=== PATIENT | female | born 1935 | race Caucasian/White ===

== ENCOUNTER 2022-10-22 16:08 | Inpatient (IN) | payer MEDICARE, SELFPAY ==
--- NOTE | ~2022-10-22 | XR_ITS ---
EXAMINATION: XR CHEST CLINICAL INFORMATION: Immediately bibasilar crackles COMPARISON: None available. TECHNIQUE: Frontal view of the chest was obtained. FINDINGS: The lungs are well-expanded and clear of acute pneumonic process. The heart size and pulmonary vascularity is normal. There is a moderate to large hiatal hernia. No gross bony abnormality seen. XR/XR chest 1V IMPRESSION: Unremarkable chest exam
[2022-10-22 16:58] VITALS: BP 165/79; PULSE 65; RESP 18; TEMP 36.6; O2SAT 94
--- NOTE | 2022-10-22 20:09 | PC.ADMIT ---
Sandra Serra was admitted to S1 from [facility] on 10/22/22 at 16:31 on a 12B for aggression. Per crisis, Sandra had increased aggression towards caregivers at home. She currently resides in an apartment by herself with 24 hour care. She is alert and oriented to self only and states she is 34 years old. She is a poor historian and was unable to participate in admission interview. When asked where she was she stated [facility]? . She stated I need to go home you can just let me out of here . She was placed on 1:1 for safety.
[2022-10-22 20:13] VITALS: BMI 21.5
[2022-10-22 20:46] VITALS: BP 188/84; PULSE 73
[2022-10-22 21:10] VITALS: BP 186/85; PULSE 71
[2022-10-22 21:40] VITALS: BP 188/82; PULSE 67; RESP 18; TEMP 35.9
[2022-10-22 22:15] VITALS: BP 181/83; PULSE 69
--- NOTE | 2022-10-22 22:16 | PC.NURSE ---
At 20:10 Patient had BP of 196/88 w/ hr of 86. Dr. Bolaños, metal bonding worker, notifed. Pt reported dull headche, no vision chnages. Administered HS med of 50 mg Metoprolol and 5mg amlodipine. Pt reassessed at 20:46 188/84 w/ HR of 73. Dr. Bolaños notified and ordered 2.5 amlodipine. BP at 2110 186/85 w/ HR 71. Pt rechecked at 2215 181/83 w/ HR of 69. At this time pt was asymptomatic, headache resolved. Miky notified and no new orders give.
--- NOTE | 2022-10-22 22:51 | PC.NURSE ---
At 20:48 Pt had bp of 188/82 w/ HR of 67. Refused all meds. Asymptomatic. Disoriented. Dr. Bolaños notified.
[2022-10-23 07:30] VITALS: BP 150/68; PULSE 76; RESP 16; TEMP 36.1; O2SAT 92
[2022-10-23 08:21] LABS: MANUAL DIFF FLAG NO
[2022-10-23 08:24] LABS: Basophils Percent Auto 0.5 % (0-2); Eosinophils Absolute Auto 0.1 X10*3/uL (0.0-0.4); Eosinophils Percent Auto 2.1 % (0-4); Hematocrit 36.9 % (37.0-47.0); Hemoglobin 12.1 g/dl (12.0-16.0); Imm Gran Abs Auto 0.03 X10*3/uL (0.00-0.03); Imm Gran Pct Auto 0.5 % (0.0-0.4); Lymphocytes Absolute Auto 2.2 X10*3/uL (1.2-4.9); Lymphocytes Percent Auto 34.2 % (20-40); Mean Corpuscular HGB Conc 32.8 g/dl (31.0-35.0); Mean Corpuscular Hemoglobin 32.6 pg (27.0-33.0); Mean Corpuscular Volume 99.5 fL (80.0-98.0); Monocytes Absolute Auto 0.6 X10*3/uL (0.1-1.2); Monocytes Percent Auto 9.7 % (2-11); Neutrophils Absolute Auto 3.4 x10*3/uL (2.0-8.3); Platelet Count 162 X10*3/uL (160-400); Red Blood Count 3.71 X10*6/uL (4.20-5.50); Red Cell Distribution Width 13.6 % (11.0-16.0); White Blood Count 6.3 X10*3/uL (4.8-10.8)
[2022-10-23 08:39] LABS: Valproate < 12.5 mcg/mL (50.0-100.0)
[2022-10-23 08:46] LABS: Alanine Aminotransferase 18 U/L (0-31); Albumin Level 3.2 g/dL (3.5-5.0); Alkaline Phosphatase 70 U/L (39-117); Anion Gap 15 (12-20); Aspartate Amino Transferase 32 U/L (5-31); Bilirubin Total 1.1 mg/dL (0.0-1.0); Blood Urea Nitrogen 22 mg/dL (9-16); Calcium 8.6 mg/dL (8.4-10.2); Carbon Dioxide 22 mmol/L (22-29); Chloride 110 mmol/L (96-108); Cholesterol 169 mg/dL; Creatinine Clr Calc Pharmacy 30.6; Estimated Glomerular Filt Rate 49; Glucose Fasting 60 mg/dL (60-99); HDL Cholesterol 54 mg/dL; LDL Cholesterol Calculated 91 mg/dl; Potassium 4.2 mmol/L (3.3-5.1); Sodium 143 mmol/L (135-145); Total Protein 5.3 g/dL (6.5-8.0); Triglycerides 123 mg/dL
[2022-10-23 09:04] LABS: Free T4 (Free Thyroxine) 1.21 ng/dL (0.71-1.85); Thyroid Stimulating Hormone 0.77 uIU/mL (0.32-4.0)
[2022-10-23] MEDS: OLANZapine 5 MG TABLET PO (09:34)
[2022-10-23] MEDS: Aspirin 81 MG TAB.CHEW PO (09:34)
[2022-10-23] MEDS: Brimonidine Tartrate 0.2% Oph 5 ML BOTTLE 0.2 DROP EYE-BOTH (09:35)
[2022-10-23] MEDS: timoloL maleate 0.5 % Oph Sol 5 ML DRBTL 1 DROP EYE-BOTH (09:35)
[2022-10-23] MEDS: Venlafaxine HCl ER 150 MG CAP.ER.24H PO (09:35)
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
--- NOTE | 2022-10-23 11:56 | HO.PM.IMCN ---
History of Present Illness Data of Consult Service Date: 10/23/22 Requesting physician: Gato Rose Primary Care Provider: Unknown Physician HPI Reason for consult: medical H&P 87 year old female with history vascular dementia, hld, htn admitted to psychiatry with consult placed to hospitalist service for medical H&P. The patient is not a good historian and is perseverating on social security checks and banking and is quite anxious about this. She does deny any complaints other than constipation. However, she has a 1:1 sitter who reports when ambulating from the bathroom, she was observed to be short of breath and fatigued which resolved when sitting in her bed. When asked she says she may be short of breath. Denies lightheadedness, orthopnea, palpitations, or chest pain. Review of Systems Review of Systems: Yes Unobtainable due to mental status [facility] Medical History Anxiety HLD (hyperlipidemia) Hypertension Vascular dementia Social History Household Members: None Household Members Other:: patient has 24 hour care Housing: Apartment Do you presently have visiting nurse or other home services: Yes (patient has 24 hour care at home) Unable to assess alcohol history related to: Unable to respond Patient Tobacco Use Status: Refuse Tobacco use screen Use of substances other than those prescribed or required for medical reasons: Unable to respond Currently Displaying Signs/Symptoms of Drug Intoxication Withdrawal: No Any prior treatment program specific to substance use: No Advance Directives: No Advance Directives Information Provided: Yes Do you have thoughts of harming others: None Do you have a plan to hurt others: No Plan Recently lost weight without trying: Unsure Nutrition Risks: No Nutritional Risk Patient : No : No Poor oral hygiene: No Meds Allergies Allergy/AdvReac Type Severity Reaction Status Date / Time Unable to Assess Allergy Unverified 10/22/22 17:14 Active Medications: Current Medications Acetaminophen (Acetaminophen 325 Mg Tablet) 650 mg PO Q6H PRN PRN Reason: Headache/Pain Mild Scale (1-3) Al Hydroxide/Mg Hydroxide (Magnesium Hydrox/Alum Hydrox 30 Ml Oral.Susp) 30 ml PO Q6H PRN PRN Reason: Heartburn/Nausea Aspirin (Aspirin 81 Mg Tab.Chew) 81 mg PO DAILY [facility] Last Admin: 10/23/22 09:34 Dose: 81 mg Atorvastatin Calcium (Atorvastatin Calcium 40 Mg Tablet) 40 mg PO BEDTIME [facility] Last Admin: 10/22/22 21:13 Dose: Not Given Brimonidine Tartrate (Brimonidine Tartrate 0.2% Oph 5 Ml Bottle) 0.2 drop EYE-BOTH TID [facility] Last Admin: 10/23/22 09:35 Dose: 0.2 drop Latanoprost (Latanoprost 0.005 % Ophth Ameena 2.5 Ml Drops) 1 drop EYE-BOTH BEDTIME [facility] Last Admin: 10/22/22 21:13 Dose: Not Given Magnesium Hydroxide (Milk Of Magnesia 30 Ml Oral.Susp) 30 ml PO DAILY PRN PRN Reason: Constipation Metoprolol Succinate (Metoprolol Succinate Er 25 Mg Tab.Er.24h) 25 mg PO BEDTIME [facility]; Protocol Last Admin: 10/22/22 21:13 Dose: Not Given Mirtazapine (Mirtazapine 15 Mg Tablet) 15 mg PO BEDTIME [facility] Last Admin: 10/22/22 21:13 Dose: Not Given Olanzapine (Olanzapine 5 Mg Tablet) 5 mg PO DAILY [facility] Last Admin: 10/23/22 09:34 Dose: 5 mg Olanzapine (Olanzapine 10 Mg Tablet) 10 mg PO BEDTIME [facility] Last Admin: 10/22/22 21:13 Dose: Not Given Timolol Maleate (Timolol Maleate 0.5 % Oph Ameena 5 Ml Drbtl) 1 drop EYE-BOTH BID [facility] Last Admin: 10/23/22 09:35 Dose: 1 drop Venlafaxine HCl (Venlafaxine Hcl Er 150 Mg Cap.Er.24h) 150 mg PO DAILY [facility] Last Admin: 10/23/22 09:35 Dose: 150 mg Home Medications Medication Instructions Recorded Confirmed Last Taken Type aspirin 81 mg chewable tablet 81 mg PO DAILY 10/22/22 10/22/22 Unknown History atorvastatin 40 mg tablet 40 mg PO BEDTIME 10/22/22 10/22/22 Unknown History brimonidine 0.2 % ophthalmic (eye) 3XD 10/22/22 10/22/22 Unknown History fluoxetine 20 mg capsule 20 mg PO DAILY 10/22/22 10/22/22 Unknown History latanoprost 0.005 % eye drops 1 drp ophthalmic (eye) BEDTIME 10/22/22 10/22/22 Unknown History metoprolol succinate 25 mg 25 mg PO BEDTIME 10/22/22 10/22/22 Unknown History tablet,extended release 24 hr mirtazapine 15 mg tablet 15 mg PO BEDTIME 10/22/22 10/22/22 Unknown History olanzapine 10 mg tablet 10 mg PO BEDTIME 10/22/22 10/22/22 Unknown History olanzapine 5 mg tablet 5 mg PO DAILY 10/22/22 10/22/22 Unknown History timolol 0.5 % eye drops 1 drp ophthalmic (eye) BID 10/22/22 10/22/22 Unknown History venlafaxine 150 mg 150 mg PO DAILY 10/22/22 10/22/22 Unknown History capsule,extended release 24 hr Physical Exam Vital Signs and Narrative: Vital Signs: Last Vital Signs Temp 97.0 F 10/23/22 07:30 Pulse 76 10/23/22 07:30 Resp 16 10/23/22 07:30 BP 150/68 H 10/23/22 07:30 Pulse Ox 92 10/23/22 07:30 O2 Del Method Room Air 10/23/22 07:30 BMI result Body Mass Index 21.5 Constitutional - Awake and Alert, No apparent distress Eyes - PERRLA, EOMI Cardiovascular - S1S2, RRR, No edema Respiratory - Normal lung expansion, Normal respiratory effort, No respiratory distress, bibasilar crackles Gastrointestinal - NT / ND; +BS; No rebound or guarding - No CVA tenderness Extremities - no calf tenderness bilaterally, no swelling Musculoskeletal - Normal inspection, normal ROM Skin - Warm/Dry Neurological - Alert & oriented x3, 5/5 strength BUE and BLE, unable to participate in cranial nerve exam Psychological - Appropriate affect Results Labs 10/23/22 08:03 10/23/22 08:03 Labs: Laboratory Results - last 24 hr 10/23/22 10/23/22 10/23/22 08:03 08:03 08:03 MCV 99.5 H MCH 32.6 MCHC 32.8 RDW 13.6 Plt Count 162 MPV 10.0 Immature Gran % (Auto) 0.5 H Neut % (Auto) 53.0 Lymph % (Auto) 34.2 [place] % (Auto) 9.7 Eos % (Auto) 2.1 Baso % (Auto) 0.5 Lymph # (Auto) 2.2 [place] # (Auto) 0.6 Eos # (Auto) 0.1 Baso # (Auto) 0.0 Abs Immat Gran (auto) 0.03 Absolute Neuts (auto) 3.4 Absolute Nucleated RBC 0.000 Nucleated RBC % (auto) 0.0 Anion Gap 15 Estim Creat Clear Calc 30.6 Estimated GFR 49 Fasting Glucose 60 Calcium 8.6 Total Bilirubin 1.1 H AST 32 H ALT 18 Alkaline Phosphatase 70 Total Protein 5.3 L Albumin 3.2 L Triglycerides 123 Cholesterol 169 LDL Cholesterol, Calc 91 HDL Cholesterol 54 TSH 0.77 Free T4 1.21 Valproic Acid < 12.5 L Assessment and Plan (1) Routine medical exam: Status: Acute (2) MONTEZ (dyspnea on exertion): Status: Acute Plan 87 year old female with history vascular dementia, glaucoma, hld, htn admitted to psychiatry with consult placed to hospitalist service for medical H&P. #Vascular dementia -plan per psychiatry -UA and head ct unremarkable #MONTEZ -observed by 1:1 sitter. Does have bibasilar crackles. No significant BLE edema -Will check CXR #HLD -continue statin #HTN -continue metoprolol #Glaucoma -continue timolol will continue to follow for results. Time Spent With Patient Time: Total time managing care of this patient today ____ minutes.
[2022-10-23 20:30] VITALS: BP 110/55; PULSE 80; RESP 18; TEMP 36.5; O2SAT 97
[2022-10-24 07:50] VITALS: BP 146/64; PULSE 65; RESP 18; TEMP 35.9; O2SAT 96
[2022-10-24] MEDS: OLANZapine 5 MG TABLET PO (08:51)
[2022-10-24] MEDS: Aspirin 81 MG TAB.CHEW PO (08:51)
[2022-10-24] MEDS: Venlafaxine HCl ER 150 MG CAP.ER.24H PO (08:52)
[2022-10-24] MEDS: timoloL maleate 0.5 % Oph Sol 5 ML DRBTL 1 DROP EYE-BOTH ×2 (08:56→20:02)
[2022-10-24] MEDS: Brimonidine Tartrate 0.2% Oph 5 ML BOTTLE 0.2 DROP EYE-BOTH ×3 (08:56→20:02)
[2022-10-24] MEDS: Acetaminophen 325 MG TABLET 650 MG PO (09:03)
--- NOTE | 2022-10-24 10:13 | P.PNPSI_ITS ---
Subjective Subjective Date of Service: 10/24/22 Reason For Visit: agitation depression Healthcare Proxy: Yes Interim History: The nursing staff reported the patient slept well last night, she is on one-to-one for safety profoundly confused. The pediatric social worker reported that her daughter came yesterday and she is the healthcare proxy, I invoked her healthcare proxy and she is going to sign the CV. On interview the patient remains very confused we will continue with medications. Mental Status Exam Mental Status Exam Patient Appearance: Appropriate Patient Orientation: Person and Situation Level of Consciousness: Awake, Disoriented and Restless Patient Behavior: Guarded and Passive Mood Description: Withdrawn Affect Description: Constricted Patient Cognition Impaired: Yes Ability to Follow Directions: Fair Speech Pattern: Clear Hallucinations: None Delusions: Paranoid Ideation Thought Process: Disoriented and Illogical Thought Content: positive for [place], positive for [employer] and positive for Thought Blocking Judgement: Poor Diagnostics Vital Signs (24Hr): Vital Signs - 24 hr 10/23/22 20:30 10/24/22 07:50 Temperature 97.7 F 96.6 F L Pulse Rate 80 65 Respiratory Rate 18 18 Blood Pressure 110/55 L 146/64 H Pulse Oximetry 97 96 Oxygen Delivery Method Room Air BMI result Body Mass Index 21.5 Labs 10/23/22 08:03 10/23/22 08:03 Labs: Laboratory Results - last 48 hr 10/23/22 10/23/22 10/23/22 08:03 08:03 08:03 WBC 6.3 RBC 3.71 L Hgb 12.1 Hct 36.9 L MCV 99.5 H MCH 32.6 MCHC 32.8 RDW 13.6 Plt Count 162 MPV 10.0 Immature Gran % (Auto) 0.5 H Neut % (Auto) 53.0 Lymph % (Auto) 34.2 [place] % (Auto) 9.7 Eos % (Auto) 2.1 Baso % (Auto) 0.5 Lymph # (Auto) 2.2 [place] # (Auto) 0.6 Eos # (Auto) 0.1 Baso # (Auto) 0.0 Abs Immat Gran (auto) 0.03 Absolute Neuts (auto) 3.4 Absolute Nucleated RBC 0.000 Nucleated RBC % (auto) 0.0 Sodium 143 Potassium 4.2 Chloride 110 H Carbon Dioxide 22 Anion Gap 15 BUN 22 H Creatinine 1.07 Estim Creat Clear Calc 30.6 Estimated GFR 49 Fasting Glucose 60 Calcium 8.6 Total Bilirubin 1.1 H AST 32 H ALT 18 Alkaline Phosphatase 70 Total Protein 5.3 L Albumin 3.2 L Triglycerides 123 Cholesterol 169 LDL Cholesterol, Calc 91 HDL Cholesterol 54 TSH 0.77 Free T4 1.21 Valproic Acid < 12.5 L Imaging Radiology Impressions: ITS Impressions Chest X-Ray 10/23/22 12:23 IMPRESSION: Unremarkable chest exam Medications Medications Current Medications Acetaminophen (Acetaminophen 325 Mg Tablet) 650 mg PO Q6H PRN PRN Reason: Headache/Pain Mild Scale (1-3) Last Admin: 10/24/22 09:03 Dose: 650 mg Al Hydroxide/Mg Hydroxide (Magnesium Hydrox/Alum Hydrox 30 Ml Oral.Susp) 30 ml PO Q6H PRN PRN Reason: Heartburn/Nausea Aspirin (Aspirin 81 Mg Tab.Chew) 81 mg PO DAILY [facility] Last Admin: 10/24/22 08:51 Dose: 81 mg Atorvastatin Calcium (Atorvastatin Calcium 40 Mg Tablet) 40 mg PO BEDTIME [facility] Last Admin: 10/23/22 20:59 Dose: Not Given Brimonidine Tartrate (Brimonidine Tartrate 0.2% Oph 5 Ml Bottle) 0.2 drop EYE- BOTH TID [facility] Last Admin: 10/24/22 08:56 Dose: 0.2 drop Latanoprost (Latanoprost 0.005 % Ophth Ameena 2.5 Ml Drops) 1 drop EYE-BOTH BEDTIME [facility] Last Admin: 10/23/22 20:59 Dose: Not Given Magnesium Hydroxide (Milk Of Magnesia 30 Ml Oral.Susp) 30 ml PO DAILY PRN PRN Reason: Constipation Metoprolol Succinate (Metoprolol Succinate Er 25 Mg Tab.Er.24h) 25 mg PO BEDTIME [facility]; Protocol Last Admin: 10/23/22 21:00 Dose: Not Given Mirtazapine (Mirtazapine 15 Mg Tablet) 15 mg PO BEDTIME [facility] Last Admin: 10/23/22 21:00 Dose: Not Given Olanzapine (Olanzapine 5 Mg Tablet) 5 mg PO DAILY [facility] Last Admin: 10/24/22 08:51 Dose: 5 mg Olanzapine (Olanzapine 10 Mg Tablet) 10 mg PO BEDTIME [facility] Last Admin: 10/23/22 21:00 Dose: Not Given Timolol Maleate (Timolol Maleate 0.5 % Oph Ameena 5 Ml Drbtl) 1 drop EYE-BOTH BID [facility] Last Admin: 10/24/22 08:56 Dose: 1 drop Venlafaxine HCl (Venlafaxine Hcl Er 150 Mg Cap.Er.24h) 150 mg PO DAILY [facility] Last Admin: 10/24/22 08:52 Dose: 150 mg Allergies Allergies Allergy/AdvReac Type Severity Reaction Status Date / Time Unable to Assess Allergy Unverified 10/22/22 17:14 Assessment & Plan Assessment & Plan (1) Major depressive disorder: Status: Acute Code(s): F32.9 - Major depressive disorder, single episode, unspecified (2) Neurodegenerative cognitive impairment: Status: Acute Code(s): G31.9 - Degenerative disease of nervous system, unspecified (3) Delirium: Status: Acute Code(s): R41.0 - Disorientation, unspecified Plan 87 year old female with history vascular dementia, glaucoma, hld, htn admitted to psychiatry with consult placed to hospitalist service for medical H&P. #Vascular dementia -plan per psychiatry -UA and head ct unremarkable #MONTEZ -observed by 1:1 sitter. Does have bibasilar crackles. No significant BLE edema -Will check CXR #HLD -continue statin #HTN -continue metoprolol #Glaucoma -continue timolol will continue to follow for results. Plan 1. Gather collateral information. 2. We will continue with olanzapine as antipsychotics. 3. We will follow lab work. Reason for continued inpatient stay Substantial Risk for: inability to function, rapid decompensation and med/psych decompensation Time Spent With Patient Time: Total time managing care of this patient today __20__ minutes.
[2022-10-24 18:00] VITALS: BP 130/73; PULSE 68; RESP 16; TEMP 36.2; O2SAT 98
[2022-10-24] MEDS: Atorvastatin Calcium 40 MG TABLET PO (20:01)
[2022-10-24] MEDS: OLANZapine 10 MG TABLET PO (20:01)
[2022-10-24] MEDS: Metoprolol Succinate ER 25 MG TAB.ER.24H PO (20:01)
[2022-10-24] MEDS: Latanoprost 0.005 % Ophth Sol 2.5 ML DROPS 1 DROP EYE-BOTH (20:02)
[2022-10-24] MEDS: Mirtazapine 15 MG TABLET PO (20:03)
[2022-10-24 20:51] LABS: Appearance Urine Cloudy; Color Urine Yellow; Glucose Urine UA Negative (Negative); Leukocyte Esterase Urine Moderate (2+) (Negative); Nitrite Urine Negative (Negative); PH 5.5 (5.0-9.0); Specific Gravity - Urine 1.025 (1.005-1.025); UMIC TRIGGER UACC YES; Urine Blood Negative (Negative); Urine Ketones Trace mg/dL (Negative); Urine Protein Trace mg/dL (Neg-Trace)
[2022-10-24 21:02] LABS: Bacteria Urine 4+ (None Seen); Squamous Epithelial Cell Urine >20 /HPF (0-2); UACC Culture Trigger YES; WBC Urine >50 /HPF (0-5)
--- NOTE | 2022-10-24 21:59 | PC.NURSE ---
Urine for U/A obtained and sent to lab. Results pending.
[2022-10-25 08:10] VITALS: BP 119/68; PULSE 63; RESP 20; TEMP 36.3; O2SAT 97
[2022-10-25] MEDS: OLANZapine 5 MG TABLET PO (08:52)
[2022-10-25] MEDS: Aspirin 81 MG TAB.CHEW PO (08:52)
[2022-10-25] MEDS: Venlafaxine HCl ER 150 MG CAP.ER.24H PO (08:53)
[2022-10-25] MEDS: timoloL maleate 0.5 % Oph Sol 5 ML DRBTL 1 DROP EYE-BOTH (08:54)
[2022-10-25] MEDS: Brimonidine Tartrate 0.2% Oph 5 ML BOTTLE 0.2 DROP EYE-BOTH ×2 (08:54→15:08)
--- NOTE | 2022-10-25 10:45 | P.PNPSI_ITS ---
Subjective Subjective Date of Service: 10/25/22 Reason For Visit: agitation depression Subjective Notes: Conditional Voluntary Interim History: The nursing staff reported the patient complained of back pain and she received Tylenol. She has been pleasant confused on one-to-one for safety. The staff has noticed that the patient's mood is a little brighter. She slept 6 hours. The occupational therapist reported that they are going to assess her gait. Finally, in the evening we could get a urine sample and it came up positive with UTI. We would call hospitalist for that. The social media executive reported that we have a family meeting scheduled for Saturday at 11:00 o'clock. On interview the patient remains pleasantly confused on one-to-one observation for safety Mental Status Exam Mental Status Exam Patient Appearance: Appropriate Patient Orientation: Person and Situation Level of Consciousness: Awake and Appropriate Patient Behavior: Guarded and Passive Mood Description: Withdrawn Affect Description: Constricted Patient Cognition Impaired: Yes Ability to Follow Directions: Good Speech Pattern: Clear Hallucinations: None Delusions: Paranoid Ideation Thought Process: Incoherent, Illogical and Distracted Thought Content: positive for [place], positive for Poverty of Content and positive for Thought Blocking Judgement: Poor Diagnostics Vital Signs (24Hr): Vital Signs - 24 hr 10/24/22 18:00 10/25/22 08:10 Temperature 97.1 F 97.4 F Pulse Rate 68 63 Respiratory Rate 16 20 Blood Pressure 130/73 119/68 Pulse Oximetry 98 97 Oxygen Delivery Method Room Air Room Air BMI result Body Mass Index 21.5 Labs 10/23/22 08:03 10/23/22 08:03 Labs: Laboratory Results - last 48 hr 10/24/22 20:14 Urine Color Yellow Urine Appearance Cloudy Urine pH 5.5 Ur Specific [place] 1.025 Urine Protein Trace Urine Glucose (UA) Negative Urine Ketones Trace Urine Blood Negative Urine Nitrite Negative Ur Leukocyte Esterase Moderate (2+) H Urine RBC 3-5 H Urine WBC >50 H Ur Squamous Epith Cells >20 Urine Bacteria 4+ Hyaline Casts 6-10 Imaging Radiology Impressions: ITS Impressions Chest X-Ray 10/23/22 12:23 IMPRESSION: Unremarkable chest exam Medications Medications Current Medications Acetaminophen (Acetaminophen 325 Mg Tablet) 650 mg PO Q6H PRN PRN Reason: Headache/Pain Mild Scale (1-3) Last Admin: 10/24/22 09:03 Dose: 650 mg Al Hydroxide/Mg Hydroxide (Magnesium Hydrox/Alum Hydrox 30 Ml Oral.Susp) 30 ml PO Q6H PRN PRN Reason: Heartburn/Nausea Aspirin (Aspirin 81 Mg Tab.Chew) 81 mg PO DAILY [facility] Last Admin: 10/25/22 08:52 Dose: 81 mg Atorvastatin Calcium (Atorvastatin Calcium 40 Mg Tablet) 40 mg PO BEDTIME [facility] Last Admin: 10/24/22 20:01 Dose: 40 mg Brimonidine Tartrate (Brimonidine Tartrate 0.2% Oph 5 Ml Bottle) 0.2 drop EYE- BOTH TID [facility] Last Admin: 10/25/22 08:54 Dose: 0.2 drop Latanoprost (Latanoprost 0.005 % Ophth Ameena 2.5 Ml Drops) 1 drop EYE-BOTH BEDTIME [facility] Last Admin: 10/24/22 20:02 Dose: 1 drop Magnesium Hydroxide (Milk Of Magnesia 30 Ml Oral.Susp) 30 ml PO DAILY PRN PRN Reason: Constipation Metoprolol Succinate (Metoprolol Succinate Er 25 Mg Tab.Er.24h) 25 mg PO BEDTIME [facility]; Protocol Last Admin: 10/24/22 20:01 Dose: 25 mg Mirtazapine (Mirtazapine 15 Mg Tablet) 15 mg PO BEDTIME [facility] Last Admin: 10/24/22 20:03 Dose: 15 mg Olanzapine (Olanzapine 5 Mg Tablet) 5 mg PO DAILY [facility] Last Admin: 10/25/22 08:52 Dose: 5 mg Olanzapine (Olanzapine 10 Mg Tablet) 10 mg PO BEDTIME [facility] Last Admin: 10/24/22 20:01 Dose: 10 mg Timolol Maleate (Timolol Maleate 0.5 % Oph Ameena 5 Ml Drbtl) 1 drop EYE-BOTH BID [facility] Last Admin: 10/25/22 08:54 Dose: 1 drop Venlafaxine HCl (Venlafaxine Hcl Er 150 Mg Cap.Er.24h) 150 mg PO DAILY [facility] Last Admin: 10/25/22 08:53 Dose: 150 mg Allergies Allergies Allergy/AdvReac Type Severity Reaction Status Date / Time Unable to Assess Allergy Unverified 10/22/22 17:14 Assessment & Plan Assessment & Plan (1) Major depressive disorder: Status: Acute Code(s): F32.9 - Major depressive disorder, single episode, unspecified (2) Neurodegenerative cognitive impairment: Status: Acute Code(s): G31.9 - Degenerative disease of nervous system, unspecified (3) Delirium: Status: Acute Code(s): R41.0 - Disorientation, unspecified Plan 87 year old female with history vascular dementia, glaucoma, hld, htn admitted to psychiatry with consult placed to hospitalist service for medical H&P. #Vascular dementia -plan per psychiatry -UA and head ct unremarkable #MONTEZ -observed by 1:1 sitter. Does have bibasilar crackles. No significant BLE edema -Will check CXR #HLD -continue statin #HTN -continue metoprolol #Glaucoma -continue timolol will continue to follow for results. Plan 1. Gather collateral information. 2. We will continue with olanzapine as antipsychotics. 3. We will follow lab work. We will inform hospitalist regarding the UTI. Most likely we will start antibiotics today. 4. Zyprexa Rosina p.r.n. started on October 26 Reason for continued inpatient stay Substantial Risk for: inability to function, rapid decompensation and med/psych decompensation Time Spent With Patient Time: Total time managing care of this patient today __20__ minutes.
[2022-10-25] MEDS: OLANZapine ODT 10 MG TAB.RAPDIS TRANSLINGU (16:32)
[2022-10-25] MEDS: cephALEXin 250 MG CAPSULE PO (17:31)
[2022-10-25] MEDS: traZODone HCL 25 MG HALFTAB PO (18:05)
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
[2022-10-25 19:40] VITALS: BP 133/60; PULSE 84; TEMP 36.4; O2SAT 97
[2022-10-25] MEDS: OLANZapine 10 MG TABLET PO (20:50)
[2022-10-25] MEDS: Atorvastatin Calcium 40 MG TABLET PO (20:50)
[2022-10-25] MEDS: Metoprolol Succinate ER 25 MG TAB.ER.24H PO (20:51)
[2022-10-25] MEDS: Mirtazapine 15 MG TABLET PO (20:51)
[2022-10-26] MEDS: cephALEXin 250 MG CAPSULE PO ×4 (01:07→23:30)
[2022-10-26] MEDS: Aspirin 81 MG TAB.CHEW PO (10:13)
[2022-10-26] MEDS: Venlafaxine HCl ER 150 MG CAP.ER.24H PO (10:13)
[2022-10-26] MEDS: OLANZapine 5 MG TABLET PO (10:13)
[2022-10-26] MEDS: timoloL maleate 0.5 % Oph Sol 5 ML DRBTL 1 DROP EYE-BOTH (10:14)
[2022-10-26 10:15] VITALS: BP 135/74; PULSE 71; RESP 16; TEMP 36.1; O2SAT 96
[2022-10-26] MEDS: Brimonidine Tartrate 0.2% Oph 5 ML BOTTLE 1 DROP EYE-BOTH ×2 (10:30→16:33)
--- NOTE | 2022-10-26 13:18 | P.PNPSI_ITS ---
Subjective Subjective Date of Service: 10/26/22 Reason For Visit: agitation depression Subjective Notes: Conditional Voluntary Interim History: The nursing staff reported the patient had been confused but compliant with treatment. Yesterday she was diagnosed of UTI and started on antibiotics. The social psychologist reported we have scheduled a family meeting for Saturday 11:00 o'clock in the morning. On interview the patient is pleasantly confused. Mental Status Exam Mental Status Exam Patient Appearance: Appropriate Patient Orientation: Person and Situation Level of Consciousness: Awake Patient Behavior: Guarded and Passive Mood Description: Withdrawn Affect Description: Constricted Patient Cognition Impaired: Yes Ability to Follow Directions: Fair Speech Pattern: Clear Hallucinations: None Delusions: Paranoid Ideation Thought Process: Distracted and Evasive Thought Content: positive for [place] and positive for Poverty of Content Judgement: Poor Diagnostics Vital Signs (24Hr): Vital Signs - 24 hr 10/25/22 19:40 10/26/22 10:15 Temperature 97.6 F 97.0 F Pulse Rate 84 71 Respiratory Rate 16 Blood Pressure 133/60 135/74 Pulse Oximetry 97 96 Oxygen Delivery Method Room Air Room Air BMI result Body Mass Index 21.5 Labs 10/23/22 08:03 10/23/22 08:03 Labs: Laboratory Results - last 48 hr 10/24/22 20:14 Urine Color Yellow Urine Appearance Cloudy Urine pH 5.5 Ur Specific [place] 1.025 Urine Protein Trace Urine Glucose (UA) Negative Urine Ketones Trace Urine Blood Negative Urine Nitrite Negative Ur Leukocyte Esterase Moderate (2+) H Urine RBC 3-5 H Urine WBC >50 H Ur Squamous Epith Cells >20 Urine Bacteria 4+ Hyaline Casts 6-10 Imaging Radiology Impressions: ITS Impressions Chest X-Ray 10/23/22 12:23 IMPRESSION: Unremarkable chest exam Medications Medications Current Medications Acetaminophen (Acetaminophen 325 Mg Tablet) 650 mg PO Q6H PRN PRN Reason: Headache/Pain Mild Scale (1-3) Last Admin: 10/24/22 09:03 Dose: 650 mg Al Hydroxide/Mg Hydroxide (Magnesium Hydrox/Alum Hydrox 30 Ml Oral.Susp) 30 ml PO Q6H PRN PRN Reason: Heartburn/Nausea Aspirin (Aspirin 81 Mg Tab.Chew) 81 mg PO DAILY [facility] Last Admin: 10/26/22 10:13 Dose: 81 mg Atorvastatin Calcium (Atorvastatin Calcium 40 Mg Tablet) 40 mg PO BEDTIME [facility] Last Admin: 10/25/22 20:50 Dose: 40 mg Brimonidine Tartrate (Brimonidine Tartrate 0.2% Oph 5 Ml Bottle) 1 drop EYE- BOTH TID [facility] Last Admin: 10/25/22 22:54 Dose: Not Given Cephalexin HCl (Cephalexin 250 Mg Capsule) 250 mg PO Q8H [facility] Last Admin: 10/26/22 10:13 Dose: 250 mg Latanoprost (Latanoprost 0.005 % Ophth Ameena 2.5 Ml Drops) 1 drop EYE-BOTH BEDTIME [facility] Last Admin: 10/25/22 22:54 Dose: Not Given Magnesium Hydroxide (Milk Of Magnesia 30 Ml Oral.Susp) 30 ml PO DAILY PRN PRN Reason: Constipation Metoprolol Succinate (Metoprolol Succinate Er 25 Mg Tab.Er.24h) 25 mg PO BEDTIME [facility]; Protocol Last Admin: 10/25/22 20:51 Dose: 25 mg Mirtazapine (Mirtazapine 15 Mg Tablet) 15 mg PO BEDTIME [facility] Last Admin: 10/25/22 20:51 Dose: 15 mg Olanzapine (Olanzapine 5 Mg Tablet) 5 mg PO DAILY [facility] Last Admin: 10/26/22 10:13 Dose: 5 mg Olanzapine (Olanzapine 10 Mg Tablet) 10 mg PO BEDTIME [facility] Last Admin: 10/25/22 20:50 Dose: 10 mg Olanzapine (Olanzapine Odt 10 Mg Tab.Rapdis) 10 mg TRANSLINGU BID PRN PRN Reason: Psychosis Last Admin: 10/25/22 16:32 Dose: 10 mg Timolol Maleate (Timolol Maleate 0.5 % Oph Ameena 5 Ml Drbtl) 1 drop EYE-BOTH BID [facility] Last Admin: 10/26/22 10:14 Dose: 1 drop Venlafaxine HCl (Venlafaxine Hcl Er 150 Mg Cap.Er.24h) 150 mg PO DAILY [facility] Last Admin: 10/26/22 10:13 Dose: 150 mg Allergies Allergies Allergy/AdvReac Type Severity Reaction Status Date / Time No Known Allergies Allergy Verified 10/25/22 16:11 Assessment & Plan Assessment & Plan (1) Major depressive disorder: Status: Acute Code(s): F32.9 - Major depressive disorder, single episode, unspecified (2) Neurodegenerative cognitive impairment: Status: Acute Code(s): G31.9 - Degenerative disease of nervous system, unspecified (3) Delirium: Status: Acute Code(s): R41.0 - Disorientation, unspecified Plan 87 year old female with history vascular dementia, glaucoma, hld, htn admitted to psychiatry with consult placed to hospitalist service for medical H&P. #Vascular dementia -plan per psychiatry -UA and head ct unremarkable #MONTEZ -observed by 1:1 sitter. Does have bibasilar crackles. No significant BLE edema -Will check CXR #HLD -continue statin #HTN -continue metoprolol #Glaucoma -continue timolol will continue to follow for results. Plan 1. Gather collateral information. 2. We will continue with olanzapine as antipsychotics. 3. We will follow lab work. We will inform hospitalist regarding the UTI. Started on antibiotics on 10/25 4. Zyprexa Zydis p.r.n. started on October 26 Reason for continued inpatient stay Substantial Risk for: inability to function, rapid decompensation and med/psych decompensation Time Spent With Patient Time: Total time managing care of this patient today __20__ minutes.
[2022-10-26 18:00] VITALS: BP 118/56; PULSE 60; RESP 16; TEMP 36.1; O2SAT 94
[2022-10-26] MEDS: Atorvastatin Calcium 40 MG TABLET PO (23:30)
[2022-10-26] MEDS: Mirtazapine 15 MG TABLET PO (23:31)
[2022-10-26] MEDS: OLANZapine 10 MG TABLET PO (23:31)
[2022-10-26] MEDS: Latanoprost 0.005 % Ophth Sol 2.5 ML DROPS 1 DROP EYE-BOTH ×3 (23:34→23:57)
[2022-10-26] MEDS: Brimonidine Tartrate 0.2% Oph 5 ML BOTTLE 0.2 DROP EYE-BOTH ×2 (23:36→23:52)
[2022-10-27 08:00] VITALS: BP 145/67; PULSE 65; RESP 16; TEMP 36.6; O2SAT 96
[2022-10-27] MEDS: Venlafaxine HCl ER 150 MG CAP.ER.24H PO (08:15)
[2022-10-27] MEDS: OLANZapine 5 MG TABLET PO (08:15)
[2022-10-27] MEDS: Aspirin 81 MG TAB.CHEW PO (08:15)
[2022-10-27] MEDS: cephALEXin 250 MG CAPSULE PO ×2 (08:15→18:16)
[2022-10-27] MEDS: Brimonidine Tartrate 0.2% Oph 5 ML BOTTLE 1 DROP EYE-BOTH ×2 (08:21→17:19)
[2022-10-27] MEDS: timoloL maleate 0.5 % Oph Sol 5 ML DRBTL 1 DROP EYE-BOTH ×2 (08:21→21:37)
--- NOTE | 2022-10-27 11:01 | HO.PSYCHPN ---
Subjective Subjective Date of Service: 10/27/22 Reason For Visit: agitation depression Interim History: The nursing staff reported the patient had been confused but compliant with treatment. She is disoriented to place. When approached she starts saying [phone] and three digits (thinking about a phone number but unable to say whose number she is talking about. When asked how her mood is she says apprehensive because I want to leave. The certified social workers in health care reported we have scheduled a family meeting for Saturday 11:00 o'clock in the morning. On interview the patient is confused. Review of Systems Review of Systems Yes Unobtainable due to mental status Mental Status Exam Mental Status Exam Patient Appearance: Appropriate Patient Orientation: Person Level of Consciousness: Awake and Alert Patient Behavior: Guarded and Passive Mood Description: Withdrawn and Apprehensive Affect Description: Constricted Patient Cognition Impaired: Yes Ability to Follow Directions: Fair Speech Pattern: Clear, Perseverating, Difficulty Finding Words, Soft-Spoken and Mumbled Memory Description: Remote Impaired, Immediate Impaired and Care Home Impaired Thought Process: Slowed Thinking and Confusion Thought Content: positive for Disoriented, positive for Perseveration and positive for Incoherent Diagnostics Vital Signs (24Hr): Vital Signs - 24 hr 10/26/22 18:00 10/27/22 08:00 Temperature 96.9 F 97.9 F Pulse Rate 60 65 Respiratory Rate 16 16 Blood Pressure 118/56 L 145/67 H Pulse Oximetry 94 96 Oxygen Delivery Method Room Air Room Air BMI result Body Mass Index 21.5 Labs 10/23/22 08:03 10/23/22 08:03 Imaging Radiology Impressions: ITS Impressions Chest X-Ray 10/23/22 12:23 IMPRESSION: Unremarkable chest exam Medications Medications Current Medications Acetaminophen (Acetaminophen 325 Mg Tablet) 650 mg PO Q6H PRN PRN Reason: Headache/Pain Mild Scale (1-3) Last Admin: 10/24/22 09:03 Dose: 650 mg Al Hydroxide/Mg Hydroxide (Magnesium Hydrox/Alum Hydrox 30 Ml Oral.Susp) 30 ml PO Q6H PRN PRN Reason: Heartburn/Nausea Aspirin (Aspirin 81 Mg Tab.Chew) 81 mg PO DAILY [facility] Last Admin: 10/27/22 08:15 Dose: 81 mg Atorvastatin Calcium (Atorvastatin Calcium 40 Mg Tablet) 40 mg PO BEDTIME [facility] Last Admin: 10/26/22 23:30 Dose: 40 mg Brimonidine Tartrate (Brimonidine Tartrate 0.2% Oph 5 Ml Bottle) 1 drop EYE-BOTH TID [facility] Last Admin: 10/27/22 08:21 Dose: 1 drop Cephalexin HCl (Cephalexin 250 Mg Capsule) 250 mg PO Q8H [facility] Last Admin: 10/27/22 08:15 Dose: 250 mg Latanoprost (Latanoprost 0.005 % Ophth Ameena 2.5 Ml Drops) 1 drop EYE-BOTH BEDTIME [facility] Last Admin: 10/26/22 23:57 Dose: 1 drop Magnesium Hydroxide (Milk Of Magnesia 30 Ml Oral.Susp) 30 ml PO DAILY PRN PRN Reason: Constipation Metoprolol Succinate (Metoprolol Succinate Er 25 Mg Tab.Er.24h) 25 mg PO BEDTIME [facility]; Protocol Last Admin: 10/26/22 23:34 Dose: Not Given Mirtazapine (Mirtazapine 15 Mg Tablet) 15 mg PO BEDTIME [facility] Last Admin: 10/26/22 23:31 Dose: 15 mg Olanzapine (Olanzapine 5 Mg Tablet) 5 mg PO DAILY [facility] Last Admin: 10/27/22 08:15 Dose: 5 mg Olanzapine (Olanzapine 10 Mg Tablet) 10 mg PO BEDTIME [facility] Last Admin: 10/26/22 23:31 Dose: 10 mg Olanzapine (Olanzapine Odt 10 Mg Tab.Rapdis) 10 mg TRANSLINGU BID PRN PRN Reason: Psychosis Last Admin: 10/25/22 16:32 Dose: 10 mg Timolol Maleate (Timolol Maleate 0.5 % Oph Ameena 5 Ml Drbtl) 1 drop EYE-BOTH BID [facility] Last Admin: 10/27/22 08:21 Dose: 1 drop Venlafaxine HCl (Venlafaxine Hcl Er 150 Mg Cap.Er.24h) 150 mg PO DAILY [facility] Last Admin: 10/27/22 08:15 Dose: 150 mg Allergies Allergies Allergy/AdvReac Type Severity Reaction Status Date / Time No Known Allergies Allergy Verified 10/25/22 16:11 Assessment & Plan Assessment & Plan (1) Major depressive disorder: Status: Acute Code(s): F32.9 - Major depressive disorder, single episode, unspecified (2) Neurodegenerative cognitive impairment: Status: Acute Code(s): G31.9 - Degenerative disease of nervous system, unspecified (3) Delirium: Status: Acute Code(s): R41.0 - Disorientation, unspecified Plan 87 year old female with history vascular dementia, glaucoma, hld, htn admitted to psychiatry with consult placed to hospitalist service for medical H&P. #Vascular dementia -plan per psychiatry -UA and head ct unremarkable #MONTEZ -observed by 1:1 sitter. Does have bibasilar crackles. No significant BLE edema -Will check CXR #HLD -continue statin #HTN -continue metoprolol #Glaucoma -continue timolol will continue to follow for results. Plan 1. Gather collateral information. 2. We will continue with olanzapine as antipsychotics. 3. We will follow lab work. We will inform hospitalist regarding the UTI. Started on antibiotics on 10/25 4. Zyprexa Zydis p.r.n. started on October 2610/27: Continue current treatment plan. Reason for continued inpatient stay Substantial Risk for: inability to function, rapid decompensation and med/psych decompensation Time Spent With Patient Time: Total time managing care of this patient today ____ minutes.
[2022-10-27 18:00] VITALS: BP 108/55; PULSE 68; RESP 16; TEMP 36.1; O2SAT 97
[2022-10-27] MEDS: OLANZapine ODT 10 MG TAB.RAPDIS TRANSLINGU (18:16)
[2022-10-27] MEDS: OLANZapine 10 MG TABLET PO (21:35)
[2022-10-27] MEDS: Atorvastatin Calcium 40 MG TABLET PO (21:36)
[2022-10-27] MEDS: Mirtazapine 15 MG TABLET PO (21:36)
[2022-10-27] MEDS: Brimonidine Tartrate 0.2% Oph 5 ML BOTTLE 0.2 DROP EYE-BOTH (21:36)
[2022-10-27] MEDS: Metoprolol Succinate ER 25 MG TAB.ER.24H PO (21:36)
[2022-10-28] MEDS: cephALEXin 250 MG CAPSULE PO ×4 (00:42→20:36)
[2022-10-28] MEDS: Brimonidine Tartrate 0.2% Oph 5 ML BOTTLE 1 DROP EYE-BOTH ×4 (00:45→23:57)
[2022-10-28 07:45] VITALS: BP 114/60; PULSE 65; RESP 18; TEMP 36.7; O2SAT 100
[2022-10-28] MEDS: OLANZapine 5 MG TABLET PO (08:00)
[2022-10-28] MEDS: Aspirin 81 MG TAB.CHEW PO (08:00)
[2022-10-28] MEDS: Venlafaxine HCl ER 150 MG CAP.ER.24H PO (08:00)
[2022-10-28] MEDS: timoloL maleate 0.5 % Oph Sol 5 ML DRBTL 1 DROP EYE-BOTH ×2 (08:21→20:40)
--- NOTE | 2022-10-28 10:47 | PC.NURSE ---
pt became agitated trying to get out of w/c, scratched the 1:1 sitter, difficult to redirect. notified Dr Kulkarni received one time order for seroquel 25mg
[2022-10-28] MEDS: QUEtiapine Fumarate 25 MG TABLET PO ×2 (10:51→15:57)
--- NOTE | 2022-10-28 16:46 | HO.PSYCHPN ---
Subjective Subjective Date of Service: 10/28/22 Reason For Visit: agitation depression Interim History: The nursing staff reported the patient had been confused and more agitated today. She required PRN Zyprexa in AM but it didn't help. Trialed Sroquel 25 mg and patient was calmer after. She is picking on things on the floor. (hallucinations/illusions). She has a UTI on Ceftin. She was approached and was mumbling about [place] and one of her daughters not visiting the last 6 days. Poor EC. The social work specialist reported we have scheduled a family meeting for Saturday 11:00 o'clock in the morning. On interview the patient is confused. Review of Systems Review of Systems Yes Unobtainable due to mental status Mental Status Exam Mental Status Exam Patient Appearance: Appropriate Patient Orientation: Person Level of Consciousness: Awake and Alert Patient Behavior: Guarded and Passive Mood Description: Withdrawn and Apprehensive Affect Description: Constricted Patient Cognition Impaired: Yes Ability to Follow Directions: Fair Speech Pattern: Clear, Perseverating, Difficulty Finding Words, Soft-Spoken and Mumbled Memory Description: Remote Impaired, Immediate Impaired and Half-Way Impaired Diagnostics Vital Signs (24Hr): Vital Signs - 24 hr 10/27/22 18:00 10/28/22 07:45 Temperature 97 F 98.0 F Pulse Rate 68 65 Respiratory Rate 16 18 Blood Pressure 108/55 L 114/60 Pulse Oximetry 97 100 Oxygen Delivery Method Room Air Room Air BMI result Body Mass Index 21.5 Labs 10/23/22 08:03 10/23/22 08:03 Imaging Radiology Impressions: ITS Impressions Chest X-Ray 10/23/22 12:23 IMPRESSION: Unremarkable chest exam Medications Medications Current Medications Acetaminophen (Acetaminophen 325 Mg Tablet) 650 mg PO Q6H PRN PRN Reason: Headache/Pain Mild Scale (1-3) Last Admin: 10/24/22 09:03 Dose: 650 mg Al Hydroxide/Mg Hydroxide (Magnesium Hydrox/Alum Hydrox 30 Ml Oral.Susp) 30 ml PO Q6H PRN PRN Reason: Heartburn/Nausea Aspirin (Aspirin 81 Mg Tab.Chew) 81 mg PO DAILY [facility] Last Admin: 10/28/22 08:00 Dose: 81 mg Atorvastatin Calcium (Atorvastatin Calcium 40 Mg Tablet) 40 mg PO BEDTIME [facility] Last Admin: 10/27/22 21:36 Dose: 40 mg Brimonidine Tartrate (Brimonidine Tartrate 0.2% Oph 5 Ml Bottle) 1 drop EYE-BOTH TID [facility] Last Admin: 10/28/22 15:35 Dose: 1 drop Cephalexin HCl (Cephalexin 250 Mg Capsule) 250 mg PO Q8H [facility] Last Admin: 10/28/22 16:32 Dose: 250 mg Latanoprost (Latanoprost 0.005 % Ophth Ameena 2.5 Ml Drops) 1 drop EYE-BOTH BEDTIME [facility] Last Admin: 10/26/22 23:57 Dose: 1 drop Magnesium Hydroxide (Milk Of Magnesia 30 Ml Oral.Susp) 30 ml PO DAILY PRN PRN Reason: Constipation Metoprolol Succinate (Metoprolol Succinate Er 25 Mg Tab.Er.24h) 25 mg PO BEDTIME [facility]; Protocol Last Admin: 10/27/22 21:36 Dose: 25 mg Mirtazapine (Mirtazapine 15 Mg Tablet) 15 mg PO BEDTIME [facility] Last Admin: 10/27/22 21:36 Dose: 15 mg Olanzapine (Olanzapine 5 Mg Tablet) 5 mg PO DAILY [facility] Last Admin: 10/28/22 08:00 Dose: 5 mg Olanzapine (Olanzapine 10 Mg Tablet) 10 mg PO BEDTIME [facility] Last Admin: 10/27/22 21:35 Dose: 10 mg Olanzapine (Olanzapine Odt 10 Mg Tab.Rapdis) 10 mg TRANSLINGU BID PRN PRN Reason: Psychosis Last Admin: 10/27/22 18:16 Dose: 10 mg Quetiapine Fumarate (Quetiapine Fumarate 25 Mg Tablet) 25 mg PO BID PRN PRN Reason: agitation Last Admin: 10/28/22 15:57 Dose: 25 mg Timolol Maleate (Timolol Maleate 0.5 % Oph Ameena 5 Ml Drbtl) 1 drop EYE-BOTH BID [facility] Last Admin: 10/28/22 08:21 Dose: 1 drop Venlafaxine HCl (Venlafaxine Hcl Er 150 Mg Cap.Er.24h) 150 mg PO DAILY [facility] Last Admin: 10/28/22 08:00 Dose: 150 mg Allergies Allergies Allergy/AdvReac Type Severity Reaction Status Date / Time No Known Allergies Allergy Verified 10/25/22 16:11 Assessment & Plan Assessment & Plan (1) Major depressive disorder: Status: Acute Code(s): F32.9 - Major depressive disorder, single episode, unspecified (2) Neurodegenerative cognitive impairment: Status: Acute Code(s): G31.9 - Degenerative disease of nervous system, unspecified (3) Delirium: Status: Acute Code(s): R41.0 - Disorientation, unspecified Plan 87 year old female with history vascular dementia, glaucoma, hld, htn admitted to psychiatry with consult placed to hospitalist service for medical H&P. #Vascular dementia -plan per psychiatry -UA and head ct unremarkable #MONTEZ -observed by 1:1 sitter. Does have bibasilar crackles. No significant BLE edema -Will check CXR #HLD -continue statin #HTN -continue metoprolol #Glaucoma -continue timolol will continue to follow for results. Plan 1. Gather collateral information. 2. We will continue with olanzapine as antipsychotics. 3. We will follow lab work. We will inform hospitalist regarding the UTI. Started on antibiotics on 10/25 4. Zyprexa Zydis p.r.n. started on October 2610/27: Continue current treatment plan. 10/28: Add Seroquel PRN 25 mg. Continue 1:1. Check BMP for electrolyte abnormalities. Reason for continued inpatient stay Substantial Risk for: inability to function and rapid decompensation Time Spent With Patient Time: Total time managing care of this patient today ____ minutes.
[2022-10-28 18:00] VITALS: BP 110/67; PULSE 74; RESP 16; TEMP 36.2; O2SAT 96
[2022-10-28] MEDS: OLANZapine 10 MG TABLET PO (20:36)
[2022-10-28] MEDS: Metoprolol Succinate ER 25 MG TAB.ER.24H PO (20:36)
[2022-10-28] MEDS: Atorvastatin Calcium 40 MG TABLET PO (20:36)
[2022-10-28] MEDS: Mirtazapine 15 MG TABLET PO (20:36)
[2022-10-28] MEDS: Latanoprost 0.005 % Ophth Sol 2.5 ML DROPS 1 DROP EYE-BOTH (20:39)
[2022-10-28] MEDS: Brimonidine Tartrate 0.2% Oph 5 ML BOTTLE 0.2 DROP EYE-BOTH (20:41)
[2022-10-29 08:03] LABS: Anion Gap 13 (12-20); Blood Urea Nitrogen 28 mg/dL (9-16); Calcium 8.3 mg/dL (8.4-10.2); Carbon Dioxide 22 mmol/L (22-29); Chloride 114 mmol/L (96-108); Creatinine Clr Calc Pharmacy 34.5; Estimated Glomerular Filt Rate 56; Glucose Random 84 mg/dL (60-115); Potassium 4.1 mmol/L (3.3-5.1); Sodium 145 mmol/L (135-145)
--- NOTE | 2022-10-29 09:53 | HO.PSYCHPN ---
Subjective Subjective Date of Service: 10/29/22 Reason For Visit: agitation depression Interim History: The nursing staff reported the patient had been confused. She received Seroquel PRN and it helped with agitation and irritability. She is picking at things on the floor. (hallucinations/illusions). She has a UTI on Ceftin. Poor EC. Non-sensical and tangential thought process. The oncology social work reported we have scheduled a family meeting for Saturday 11:00 o'clock in the morning. Review of Systems Review of Systems Yes Unobtainable due to mental status Mental Status Exam Mental Status Exam Patient Appearance: Appropriate Patient Orientation: Person Level of Consciousness: Awake and Alert Patient Behavior: Guarded and Passive Mood Description: Withdrawn and Apprehensive Affect Description: Constricted Patient Cognition Impaired: Yes Ability to Follow Directions: Fair Speech Pattern: Clear, Perseverating, Difficulty Finding Words, Soft-Spoken and Mumbled Memory Description: Remote Impaired, Immediate Impaired and [place] Impaired Diagnostics Vital Signs (24Hr): Vital Signs - 24 hr 10/28/22 18:00 Temperature 97.2 F Pulse Rate 74 Respiratory Rate 16 Blood Pressure 110/67 Pulse Oximetry 96 Oxygen Delivery Method Room Air BMI result Body Mass Index 21.5 Labs 10/23/22 08:03 10/29/22 07:38 Labs: Laboratory Results - last 48 hr 10/29/22 07:38 Sodium 145 Potassium 4.1 Chloride 114 H Carbon Dioxide 22 Anion Gap 13 BUN 28 H Creatinine 0.95 Estim Creat Clear Calc 34.5 Estimated GFR 56 Random Glucose 84 Calcium 8.3 L Imaging Radiology Impressions: ITS Impressions Chest X-Ray 10/23/22 12:23 IMPRESSION: Unremarkable chest exam Medications Medications Current Medications Acetaminophen (Acetaminophen 325 Mg Tablet) 650 mg PO Q6H PRN PRN Reason: Headache/Pain Mild Scale (1-3) Last Admin: 10/24/22 09:03 Dose: 650 mg Al Hydroxide/Mg Hydroxide (Magnesium Hydrox/Alum Hydrox 30 Ml Oral.Susp) 30 ml PO Q6H PRN PRN Reason: Heartburn/Nausea Aspirin (Aspirin 81 Mg Tab.Chew) 81 mg PO DAILY [facility] Last Admin: 10/28/22 08:00 Dose: 81 mg Atorvastatin Calcium (Atorvastatin Calcium 40 Mg Tablet) 40 mg PO BEDTIME [facility] Last Admin: 10/28/22 20:36 Dose: 40 mg Brimonidine Tartrate (Brimonidine Tartrate 0.2% Oph 5 Ml Bottle) 1 drop EYE-BOTH TID [facility] Last Admin: 10/28/22 23:57 Dose: 1 drop Cephalexin HCl (Cephalexin 250 Mg Capsule) 250 mg PO Q8H [facility] Last Admin: 10/28/22 20:36 Dose: 250 mg Latanoprost (Latanoprost 0.005 % Ophth Ameena 2.5 Ml Drops) 1 drop EYE-BOTH BEDTIME [facility] Last Admin: 10/28/22 20:39 Dose: 1 drop Magnesium Hydroxide (Milk Of Magnesia 30 Ml Oral.Susp) 30 ml PO DAILY PRN PRN Reason: Constipation Metoprolol Succinate (Metoprolol Succinate Er 25 Mg Tab.Er.24h) 25 mg PO BEDTIME [facility]; Protocol Last Admin: 10/28/22 20:36 Dose: 25 mg Mirtazapine (Mirtazapine 15 Mg Tablet) 15 mg PO BEDTIME [facility] Last Admin: 10/28/22 20:36 Dose: 15 mg Olanzapine (Olanzapine 5 Mg Tablet) 5 mg PO DAILY [facility] Last Admin: 10/28/22 08:00 Dose: 5 mg Olanzapine (Olanzapine 10 Mg Tablet) 10 mg PO BEDTIME [facility] Last Admin: 10/28/22 20:36 Dose: 10 mg Olanzapine (Olanzapine Odt 10 Mg Tab.Rapdis) 10 mg TRANSLINGU BID PRN PRN Reason: Psychosis Last Admin: 10/27/22 18:16 Dose: 10 mg Quetiapine Fumarate (Quetiapine Fumarate 25 Mg Tablet) 25 mg PO BID PRN PRN Reason: agitation Last Admin: 10/28/22 15:57 Dose: 25 mg Timolol Maleate (Timolol Maleate 0.5 % Oph Ameena 5 Ml Drbtl) 1 drop EYE-BOTH BID [facility] Last Admin: 10/28/22 20:40 Dose: 1 drop Venlafaxine HCl (Venlafaxine Hcl Er 150 Mg Cap.Er.24h) 150 mg PO DAILY [facility] Last Admin: 10/28/22 08:00 Dose: 150 mg Allergies Allergies Allergy/AdvReac Type Severity Reaction Status Date / Time No Known Allergies Allergy Verified 10/25/22 16:11 Assessment & Plan Assessment & Plan (1) Major depressive disorder: Status: Acute Code(s): F32.9 - Major depressive disorder, single episode, unspecified (2) Neurodegenerative cognitive impairment: Status: Acute Code(s): G31.9 - Degenerative disease of nervous system, unspecified (3) Delirium: Status: Acute Code(s): R41.0 - Disorientation, unspecified Plan 87 year old female with history vascular dementia, glaucoma, hld, htn admitted to psychiatry with consult placed to hospitalist service for medical H&P. #Vascular dementia -plan per psychiatry -UA and head ct unremarkable #MONTEZ -observed by 1:1 sitter. Does have bibasilar crackles. No significant BLE edema -Will check CXR #HLD -continue statin #HTN -continue metoprolol #Glaucoma -continue timolol will continue to follow for results. Plan 1. Gather collateral information. 2. We will continue with olanzapine as antipsychotics. 3. We will follow lab work. We will inform hospitalist regarding the UTI. Started on antibiotics on 10/25 4. Zyprexa Zydis p.r.n. started on October 2610/27: Continue current treatment plan. 10/28: Add Seroquel PRN 25 mg. Continue 1:1. Check BMP for electrolyte abnormalities. 10/29: Continue same plan of care. Reason for continued inpatient stay Substantial Risk for: harm to self, inability to function and rapid decompensation Time Spent With Patient Time: Total time managing care of this patient today ____ minutes.
[2022-10-29] MEDS: Venlafaxine HCl ER 150 MG CAP.ER.24H PO (10:47)
[2022-10-29] MEDS: cephALEXin 250 MG CAPSULE PO ×2 (10:47→17:34)
[2022-10-29] MEDS: OLANZapine 5 MG TABLET PO (10:47)
[2022-10-29] MEDS: Aspirin 81 MG TAB.CHEW PO (10:47)
[2022-10-29] MEDS: Brimonidine Tartrate 0.2% Oph 5 ML BOTTLE 1 DROP EYE-BOTH (14:54)
[2022-10-29 17:54] VITALS: BP 112/68; PULSE 68; RESP 16; TEMP 36.4; O2SAT 97
[2022-10-29] MEDS: Mirtazapine 15 MG TABLET PO (20:58)
[2022-10-29] MEDS: OLANZapine 10 MG TABLET PO (20:59)
[2022-10-29] MEDS: Metoprolol Succinate ER 25 MG TAB.ER.24H PO (20:59)
[2022-10-29] MEDS: Atorvastatin Calcium 40 MG TABLET PO (20:59)
[2022-10-29] MEDS: Latanoprost 0.005 % Ophth Sol 2.5 ML DROPS 1 DROP EYE-BOTH (21:25)
[2022-10-29] MEDS: timoloL maleate 0.5 % Oph Sol 5 ML DRBTL 1 DROP EYE-BOTH (21:26)
[2022-10-30 08:00] VITALS: BP 133/73; PULSE 60; RESP 16; TEMP 36; O2SAT 95
--- NOTE | 2022-10-30 09:53 | HO.PSYCHPN ---
Subjective Subjective Date of Service: 10/30/22 Reason For Visit: agitation depression Subjective Notes: Conditional Voluntary Interim History: The nursing staff reported the patient slept most of the day, she remains confused but redirectable. On interview the patient denies new symptoms she looks pleasantly confused. We decided to change Zyprexa during the day to Zyprexa all at night. Mental Status Exam Mental Status Exam Patient Appearance: Appropriate Patient Orientation: Person Level of Consciousness: Awake and Disoriented Patient Behavior: Guarded and Passive Mood Description: Withdrawn Affect Description: Labile Patient Cognition Impaired: Yes Ability to Follow Directions: Fair Speech Pattern: Clear Hallucinations: None Delusions: Paranoid Ideation Thought Process: Illogical and Distracted Thought Content: positive for [place] and positive for Thought Blocking Judgement: Poor Diagnostics Vital Signs (24Hr): Vital Signs - 24 hr 10/29/22 17:54 Temperature 97.6 F Pulse Rate 68 Respiratory Rate 16 Blood Pressure 112/68 Pulse Oximetry 97 Oxygen Delivery Method Room Air BMI result Body Mass Index 21.5 Labs 10/23/22 08:03 10/29/22 07:38 Labs: Laboratory Results - last 48 hr 10/29/22 07:38 Sodium 145 Potassium 4.1 Chloride 114 H Carbon Dioxide 22 Anion Gap 13 BUN 28 H Creatinine 0.95 Estim Creat Clear Calc 34.5 Estimated GFR 56 Random Glucose 84 Calcium 8.3 L Imaging Radiology Impressions: ITS Impressions Chest X-Ray 10/23/22 12:23 IMPRESSION: Unremarkable chest exam Medications Medications Current Medications Acetaminophen (Acetaminophen 325 Mg Tablet) 650 mg PO Q6H PRN PRN Reason: Headache/Pain Mild Scale (1-3) Last Admin: 10/24/22 09:03 Dose: 650 mg Al Hydroxide/Mg Hydroxide (Magnesium Hydrox/Alum Hydrox 30 Ml Oral.Susp) 30 ml PO Q6H PRN PRN Reason: Heartburn/Nausea Aspirin (Aspirin 81 Mg Tab.Chew) 81 mg PO DAILY [facility] Last Admin: 10/29/22 10:47 Dose: 81 mg Atorvastatin Calcium (Atorvastatin Calcium 40 Mg Tablet) 40 mg PO BEDTIME [facility] Last Admin: 10/29/22 20:59 Dose: 40 mg Brimonidine Tartrate (Brimonidine Tartrate 0.2% Oph 5 Ml Bottle) 1 drop EYE-BOTH TID [facility] Last Admin: 10/29/22 21:25 Dose: Not Given Cephalexin HCl (Cephalexin 250 Mg Capsule) 250 mg PO Q8H [facility] Last Admin: 10/30/22 07:36 Dose: Not Given Latanoprost (Latanoprost 0.005 % Ophth Ameena 2.5 Ml Drops) 1 drop EYE-BOTH BEDTIME [facility] Last Admin: 10/29/22 21:25 Dose: 1 drop Magnesium Hydroxide (Milk Of Magnesia 30 Ml Oral.Susp) 30 ml PO DAILY PRN PRN Reason: Constipation Metoprolol Succinate (Metoprolol Succinate Er 25 Mg Tab.Er.24h) 25 mg PO BEDTIME [facility]; Protocol Last Admin: 10/29/22 20:59 Dose: 25 mg Mirtazapine (Mirtazapine 15 Mg Tablet) 15 mg PO BEDTIME [facility] Last Admin: 10/29/22 20:58 Dose: 15 mg Olanzapine (Olanzapine Odt 10 Mg Tab.Rapdis) 10 mg TRANSLINGU BID PRN PRN Reason: Psychosis Last Admin: 10/27/22 18:16 Dose: 10 mg Olanzapine (Olanzapine 7.5 Mg Tablet) 15 mg PO BEDTIME [facility] Quetiapine Fumarate (Quetiapine Fumarate 25 Mg Tablet) 25 mg PO BID PRN PRN Reason: agitation Last Admin: 10/28/22 15:57 Dose: 25 mg Timolol Maleate (Timolol Maleate 0.5 % Oph Ameena 5 Ml Drbtl) 1 drop EYE-BOTH BID [facility] Last Admin: 10/29/22 21:26 Dose: 1 drop Venlafaxine HCl (Venlafaxine Hcl Er 150 Mg Cap.Er.24h) 150 mg PO DAILY [facility] Last Admin: 10/29/22 10:47 Dose: 150 mg Allergies Allergies Allergy/AdvReac Type Severity Reaction Status Date / Time No Known Allergies Allergy Verified 10/25/22 16:11 Assessment & Plan Assessment & Plan (1) Major depressive disorder: Status: Acute Code(s): F32.9 - Major depressive disorder, single episode, unspecified (2) Neurodegenerative cognitive impairment: Status: Acute Code(s): G31.9 - Degenerative disease of nervous system, unspecified (3) Delirium: Status: Acute Code(s): R41.0 - Disorientation, unspecified Plan 87 year old female with history vascular dementia, glaucoma, hld, htn admitted to psychiatry with consult placed to hospitalist service for medical H&P. #Vascular dementia -plan per psychiatry -UA and head ct unremarkable #MONTEZ -observed by 1:1 sitter. Does have bibasilar crackles. No significant BLE edema -Will check CXR #HLD -continue statin #HTN -continue metoprolol #Glaucoma -continue timolol will continue to follow for results. Plan 1. Gather collateral information. 2. We will continue with olanzapine as antipsychotics. 3. We will follow lab work. We will inform hospitalist regarding the UTI. Started on antibiotics on 10/25 4. Zyprexa Zydis p.r.n. started on October 26 5. Discontinue Zyprexa q.a.m. and change Zyprexa 15 mg p.o. q.h.s. all at night. Reason for continued inpatient stay Substantial Risk for: inability to function, rapid decompensation and med/psych decompensation Time Spent With Patient Time: Total time managing care of this patient today ____ minutes.
[2022-10-30] MEDS: Brimonidine Tartrate 0.2% Oph 5 ML BOTTLE 1 DROP EYE-BOTH ×3 (09:58→23:08)
[2022-10-30] MEDS: Aspirin 81 MG TAB.CHEW PO (09:58)
[2022-10-30] MEDS: Venlafaxine HCl ER 150 MG CAP.ER.24H PO (09:58)
[2022-10-30] MEDS: cephALEXin 250 MG CAPSULE PO ×3 (09:58→20:09)
[2022-10-30] MEDS: timoloL maleate 0.5 % Oph Sol 5 ML DRBTL 1 DROP EYE-BOTH ×2 (10:06→23:08)
[2022-10-30 18:00] VITALS: BP 116/69; PULSE 69; RESP 16; TEMP 36.3; O2SAT 99
[2022-10-30] MEDS: Atorvastatin Calcium 40 MG TABLET PO (20:10)
[2022-10-30] MEDS: OLANZapine 7.5 MG TABLET 15 MG PO (20:10)
[2022-10-30] MEDS: QUEtiapine Fumarate 25 MG TABLET PO (20:11)
[2022-10-30] MEDS: Mirtazapine 15 MG TABLET PO (20:11)
[2022-10-30] MEDS: Metoprolol Succinate ER 25 MG TAB.ER.24H PO (20:11)
[2022-10-30] MEDS: Latanoprost 0.005 % Ophth Sol 2.5 ML DROPS 1 DROP EYE-BOTH (23:07)
[2022-10-31 08:25] VITALS: BP 127/68; PULSE 63; TEMP 35.9; O2SAT 100
[2022-10-31] MEDS: Aspirin 81 MG TAB.CHEW PO (08:43)
[2022-10-31] MEDS: cephALEXin 250 MG CAPSULE PO ×3 (08:44→23:46)
[2022-10-31] MEDS: Venlafaxine HCl ER 150 MG CAP.ER.24H PO (08:44)
[2022-10-31] MEDS: timoloL maleate 0.5 % Oph Sol 5 ML DRBTL 1 DROP EYE-BOTH ×2 (08:45→20:55)
[2022-10-31] MEDS: Brimonidine Tartrate 0.2% Oph 5 ML BOTTLE 1 DROP EYE-BOTH ×3 (09:20→20:55)
--- NOTE | 2022-10-31 11:34 | P.PNPSI_ITS ---
Subjective Subjective Date of Service: 10/31/22 Reason For Visit: agitation depression Subjective Notes: Conditional Voluntary Healthcare Proxy: Yes Interim History: The nursing staff reported the patient remains on one-to-one confused, she took trazodone last night and slept 7 hours. The high school social science teacher reported the family will meet with the daughter and they are working for placement. The occupational therapy reported that she has been anxious and suspicious at times. On interview the patient was very intrusive asking for discharge, unable to remember why she was here. Mental Status Exam Mental Status Exam Patient Appearance: Appropriate Patient Orientation: Person and Situation Level of Consciousness: Awake Patient Behavior: Guarded Mood Description: Withdrawn Affect Description: Constricted Patient Cognition Impaired: Yes Ability to Follow Directions: Fair Speech Pattern: Clear Hallucinations: None Delusions: Not Present Thought Process: Incoherent and Distracted Thought Content: positive for [place], positive for Loose Associations and posi tive for Thought Blocking Judgement: Poor Diagnostics Vital Signs (24Hr): Vital Signs - 24 hr 10/30/22 18:00 10/31/22 08:25 Temperature 97.3 F 96.7 F L Pulse Rate 69 63 Respiratory Rate 16 Blood Pressure 116/69 127/68 Pulse Oximetry 99 100 Oxygen Delivery Method Room Air Room Air BMI result Body Mass Index 21.5 Labs 10/23/22 08:03 10/29/22 07:38 Imaging Radiology Impressions: ITS Impressions Chest X-Ray 10/23/22 12:23 IMPRESSION: Unremarkable chest exam Medications Medications Current Medications Acetaminophen (Acetaminophen 325 Mg Tablet) 650 mg PO Q6H PRN PRN Reason: Headache/Pain Mild Scale (1-3) Last Admin: 10/24/22 09:03 Dose: 650 mg Al Hydroxide/Mg Hydroxide (Magnesium Hydrox/Alum Hydrox 30 Ml Oral.Susp) 30 ml PO Q6H PRN PRN Reason: Heartburn/Nausea Aspirin (Aspirin 81 Mg Tab.Chew) 81 mg PO DAILY [facility] Last Admin: 10/31/22 08:43 Dose: 81 mg Atorvastatin Calcium (Atorvastatin Calcium 40 Mg Tablet) 40 mg PO BEDTIME [facility] Last Admin: 10/30/22 20:10 Dose: 40 mg Brimonidine Tartrate (Brimonidine Tartrate 0.2% Oph 5 Ml Bottle) 1 drop EYE- BOTH TID [facility] Last Admin: 10/31/22 09:20 Dose: 1 drop Cephalexin HCl (Cephalexin 250 Mg Capsule) 250 mg PO Q8H [facility] Last Admin: 10/31/22 08:44 Dose: 250 mg Latanoprost (Latanoprost 0.005 % Ophth Ameena 2.5 Ml Drops) 1 drop EYE-BOTH BEDTIME [facility] Last Admin: 10/30/22 23:07 Dose: 1 drop Magnesium Hydroxide (Milk Of Magnesia 30 Ml Oral.Susp) 30 ml PO DAILY PRN PRN Reason: Constipation Metoprolol Succinate (Metoprolol Succinate Er 25 Mg Tab.Er.24h) 25 mg PO BEDTIME [facility]; Protocol Last Admin: 10/30/22 20:11 Dose: 25 mg Mirtazapine (Mirtazapine 15 Mg Tablet) 15 mg PO BEDTIME [facility] Last Admin: 10/30/22 20:11 Dose: 15 mg Olanzapine (Olanzapine Odt 10 Mg Tab.Rapdis) 10 mg TRANSLINGU BID PRN PRN Reason: Psychosis Last Admin: 10/27/22 18:16 Dose: 10 mg Olanzapine (Olanzapine 7.5 Mg Tablet) 15 mg PO BEDTIME [facility] Last Admin: 10/30/22 20:10 Dose: 15 mg Quetiapine Fumarate (Quetiapine Fumarate 25 Mg Tablet) 25 mg PO BID PRN PRN Reason: agitation Last Admin: 10/30/22 20:11 Dose: 25 mg Timolol Maleate (Timolol Maleate 0.5 % Oph Ameena 5 Ml Drbtl) 1 drop EYE-BOTH BID [facility] Last Admin: 10/31/22 08:45 Dose: 1 drop Venlafaxine HCl (Venlafaxine Hcl Er 150 Mg Cap.Er.24h) 150 mg PO DAILY [facility] Last Admin: 10/31/22 08:44 Dose: 150 mg Allergies Allergies Allergy/AdvReac Type Severity Reaction Status Date / Time No Known Allergies Allergy Verified 10/25/22 16:11 Assessment & Plan Assessment & Plan (1) Major depressive disorder: Status: Acute Code(s): F32.9 - Major depressive disorder, single episode, unspecified (2) Neurodegenerative cognitive impairment: Status: Acute Code(s): G31.9 - Degenerative disease of nervous system, unspecified (3) Delirium: Status: Acute Code(s): R41.0 - Disorientation, unspecified Plan 87 year old female with history vascular dementia, glaucoma, hld, htn admitted to psychiatry with consult placed to hospitalist service for medical H&P. #Vascular dementia -plan per psychiatry -UA and head ct unremarkable #MONTEZ -observed by 1:1 sitter. Does have bibasilar crackles. No significant BLE edema -Will check CXR #HLD -continue statin #HTN -continue metoprolol #Glaucoma -continue timolol will continue to follow for results. Plan 1. Gather collateral information. 2. We will continue with olanzapine as antipsychotics. 3. We will follow lab work. We will inform hospitalist regarding the UTI. Started on antibiotics on 10/25 4. Zyprexa Zydis p.r.n. started on October 26 5. Discontinue Zyprexa q.a.m. and change Zyprexa 15 mg p.o. q.h.s. all at night. 6. Start trazodone 25 mg p.o. t.i.d. to target anxiety Reason for continued inpatient stay Substantial Risk for: inability to function, rapid decompensation and med/psych decompensation Time Spent With Patient Time: Total time managing care of this patient today __20__ minutes.
[2022-10-31] MEDS: traZODone HCL 25 MG HALFTAB PO ×2 (14:52→20:56)
[2022-10-31 19:00] VITALS: BP 129/60; PULSE 65; RESP 16; TEMP 36.6; O2SAT 96
[2022-10-31] MEDS: Latanoprost 0.005 % Ophth Sol 2.5 ML DROPS 1 DROP EYE-BOTH (20:55)
[2022-10-31] MEDS: Metoprolol Succinate ER 25 MG TAB.ER.24H PO (20:55)
[2022-10-31] MEDS: Mirtazapine 15 MG TABLET PO (20:55)
[2022-10-31] MEDS: Atorvastatin Calcium 40 MG TABLET PO (20:55)
[2022-10-31] MEDS: OLANZapine 7.5 MG TABLET 15 MG PO (20:56)
[2022-10-31] MEDS: QUEtiapine Fumarate 25 MG TABLET PO (22:29)
[2022-10-31] MEDS: Acetaminophen 325 MG TABLET 650 MG PO (23:47)
[2022-11-01 06:00] VITALS: BP 115/63; PULSE 57; RESP 18; TEMP 36.1; O2SAT 92
[2022-11-01] MEDS: traZODone HCL 25 MG HALFTAB PO ×2 (08:38→16:08)
[2022-11-01] MEDS: Venlafaxine HCl ER 150 MG CAP.ER.24H PO (08:38)
[2022-11-01] MEDS: Brimonidine Tartrate 0.2% Oph 5 ML BOTTLE 1 DROP EYE-BOTH ×2 (08:39→16:08)
[2022-11-01] MEDS: cephALEXin 250 MG CAPSULE PO ×2 (08:39→16:17)
[2022-11-01] MEDS: timoloL maleate 0.5 % Oph Sol 5 ML DRBTL 1 DROP EYE-BOTH (08:39)
[2022-11-01] MEDS: Aspirin 81 MG TAB.CHEW PO (08:39)
--- NOTE | 2022-11-01 14:21 | P.PNPSI_ITS ---
Subjective Subjective Date of Service: 11/01/22 Reason For Visit: agitation depression Subjective Notes: Conditional Voluntary Interim History: The nursing staff reported the patient had been pleasantly confused, last night she stated that she was in a boat and she was under water. The director of social media marketing reported that she had been referred to assisted living [facility] for long-term care. The occupational therapist reported that she is less anxious and she had been more active in the milieu. On interview the patient is still pleasantly confused. Mental Status Exam Mental Status Exam Patient Appearance: Appropriate Patient Orientation: Person Level of Consciousness: Restless and Alert Patient Behavior: Guarded and Passive Mood Description: Calm Affect Description: Labile Patient Cognition Impaired: Yes Ability to Follow Directions: Good Speech Pattern: Clear Hallucinations: None Delusions: Paranoid Ideation Thought Process: Distracted and Slowed Thinking Thought Content: positive for [place], positive for [place] and positive for Loose Associations Judgement: Poor Diagnostics Vital Signs (24Hr): Vital Signs - 24 hr 10/31/22 19:00 Temperature 97.8 F Pulse Rate 65 Respiratory Rate 16 Blood Pressure 129/60 Pulse Oximetry 96 Oxygen Delivery Method Room Air BMI result Body Mass Index 21.5 Labs 10/23/22 08:03 10/29/22 07:38 Imaging Radiology Impressions: ITS Impressions Chest X-Ray 10/23/22 12:23 IMPRESSION: Unremarkable chest exam Medications Medications Current Medications Acetaminophen (Acetaminophen 325 Mg Tablet) 650 mg PO Q6H PRN PRN Reason: Headache/Pain Mild Scale (1-3) Last Admin: 10/31/22 23:47 Dose: 650 mg Al Hydroxide/Mg Hydroxide (Magnesium Hydrox/Alum Hydrox 30 Ml Oral.Susp) 30 ml PO Q6H PRN PRN Reason: Heartburn/Nausea Aspirin (Aspirin 81 Mg Tab.Chew) 81 mg PO DAILY [facility] Last Admin: 11/01/22 08:39 Dose: 81 mg Atorvastatin Calcium (Atorvastatin Calcium 40 Mg Tablet) 40 mg PO BEDTIME [facility] Last Admin: 10/31/22 20:55 Dose: 40 mg Brimonidine Tartrate (Brimonidine Tartrate 0.2% Oph 5 Ml Bottle) 1 drop EYE- BOTH TID [facility] Last Admin: 11/01/22 08:39 Dose: 1 drop Cephalexin HCl (Cephalexin 250 Mg Capsule) 250 mg PO Q8H [facility] Last Admin: 11/01/22 08:39 Dose: 250 mg Latanoprost (Latanoprost 0.005 % Ophth Ameena 2.5 Ml Drops) 1 drop EYE-BOTH BEDTIME [facility] Last Admin: 10/31/22 20:55 Dose: 1 drop Magnesium Hydroxide (Milk Of Magnesia 30 Ml Oral.Susp) 30 ml PO DAILY PRN PRN Reason: Constipation Metoprolol Succinate (Metoprolol Succinate Er 25 Mg Tab.Er.24h) 25 mg PO BEDTIME [facility]; Protocol Last Admin: 10/31/22 20:55 Dose: 25 mg Mirtazapine (Mirtazapine 15 Mg Tablet) 15 mg PO BEDTIME [facility] Last Admin: 10/31/22 20:55 Dose: 15 mg Olanzapine (Olanzapine Odt 10 Mg Tab.Rapdis) 10 mg TRANSLINGU BID PRN PRN Reason: Psychosis Last Admin: 10/27/22 18:16 Dose: 10 mg Olanzapine (Olanzapine 7.5 Mg Tablet) 15 mg PO BEDTIME [facility] Last Admin: 10/31/22 20:56 Dose: 15 mg Quetiapine Fumarate (Quetiapine Fumarate 25 Mg Tablet) 25 mg PO BID PRN PRN Reason: agitation Last Admin: 10/31/22 22:29 Dose: 25 mg Timolol Maleate (Timolol Maleate 0.5 % Oph Ameena 5 Ml Drbtl) 1 drop EYE-BOTH BID [facility] Last Admin: 11/01/22 08:39 Dose: 1 drop Trazodone HCl (Trazodone Hcl 25 Mg Halftab) 25 mg PO TID [facility] Last Admin: 11/01/22 08:38 Dose: 25 mg Venlafaxine HCl (Venlafaxine Hcl Er 150 Mg Cap.Er.24h) 150 mg PO DAILY [facility] Last Admin: 11/01/22 08:38 Dose: 150 mg Allergies Allergies Allergy/AdvReac Type Severity Reaction Status Date / Time No Known Allergies Allergy Verified 10/25/22 16:11 Assessment & Plan Assessment & Plan (1) Major depressive disorder: Status: Acute Code(s): F32.9 - Major depressive disorder, single episode, unspecified (2) Neurodegenerative cognitive impairment: Status: Acute Code(s): G31.9 - Degenerative disease of nervous system, unspecified (3) Delirium: Status: Acute Code(s): R41.0 - Disorientation, unspecified Plan 87 year old female with history vascular dementia, glaucoma, hld, htn admitted to psychiatry with consult placed to hospitalist service for medical H&P. #Vascular dementia -plan per psychiatry -UA and head ct unremarkable #MONTEZ -observed by 1:1 sitter. Does have bibasilar crackles. No significant BLE edema -Will check CXR #HLD -continue statin #HTN -continue metoprolol #Glaucoma -continue timolol will continue to follow for results. Plan 1. Gather collateral information. 2. We will continue with olanzapine as antipsychotics. 3. We will follow lab work. We will inform hospitalist regarding the UTI. Started on antibiotics on 10/25 4. Zyprexa Zydis p.r.n. started on October 26 5. Discontinue Zyprexa q.a.m. and change Zyprexa 15 mg p.o. q.h.s. all at night. 6. Start trazodone 25 mg p.o. t.i.d. to target anxiety Reason for continued inpatient stay Substantial Risk for: inability to function, rapid decompensation and med/psych decompensation Time Spent With Patient Time: Total time managing care of this patient today __20__ minutes.
[2022-11-01 20:00] VITALS: BP 103/52; PULSE 55; RESP 16; TEMP 36.2; O2SAT 94
[2022-11-02] MEDS: cephALEXin 250 MG CAPSULE PO ×3 (01:31→16:44)
[2022-11-02 09:20] VITALS: BP 131/53; PULSE 59; TEMP 37; O2SAT 96
[2022-11-02] MEDS: Aspirin 81 MG TAB.CHEW PO (09:26)
[2022-11-02] MEDS: traZODone HCL 25 MG HALFTAB PO ×3 (09:26→20:52)
[2022-11-02] MEDS: Venlafaxine HCl ER 150 MG CAP.ER.24H PO (09:26)
[2022-11-02] MEDS: Brimonidine Tartrate 0.2% Oph 5 ML BOTTLE 1 DROP EYE-BOTH ×3 (09:48→20:47)
[2022-11-02] MEDS: timoloL maleate 0.5 % Oph Sol 5 ML DRBTL 1 DROP EYE-BOTH ×2 (09:48→20:47)
--- NOTE | 2022-11-02 13:36 | P.PNPSI_ITS ---
Subjective Subjective Date of Service: 11/02/22 Reason For Visit: agitation depression Subjective Notes: Conditional Voluntary Interim History: The nursing staff reported that she had been on one-to-one due to impulsivity. She slept well last night and she was quiet and cooperative. The social science manager reported that there is a bed on the assisted living facility memory unit and most likely she could be discharged next Saturday. On interview the patient is pleasantly confused, waiting for placement Mental Status Exam Mental Status Exam Patient Appearance: Appropriate Patient Orientation: Person Level of Consciousness: Awake and Appropriate Patient Behavior: Guarded Mood Description: Constricted Affect Description: Calm Patient Cognition Impaired: Yes Ability to Follow Directions: Good Speech Pattern: Clear Hallucinations: None Delusions: Not Present Thought Process: Illogical Thought Content: positive for [place], positive for Poverty of Content and positive for Thought Blocking Judgement: Poor Diagnostics Vital Signs (24Hr): Vital Signs - 24 hr 11/01/22 20:00 11/02/22 06:00 Temperature 97.2 F 98.6 F Pulse Rate 55 59 Respiratory Rate 16 Blood Pressure 103/52 L 131/53 L Pulse Oximetry 94 96 Oxygen Delivery Method Room Air Room Air BMI result Body Mass Index 21.5 Labs 10/23/22 08:03 10/29/22 07:38 Imaging Radiology Impressions: ITS Impressions Chest X-Ray 10/23/22 12:23 IMPRESSION: Unremarkable chest exam Medications Medications Current Medications Acetaminophen (Acetaminophen 325 Mg Tablet) 650 mg PO Q6H PRN PRN Reason: Headache/Pain Mild Scale (1-3) Last Admin: 10/31/22 23:47 Dose: 650 mg Al Hydroxide/Mg Hydroxide (Magnesium Hydrox/Alum Hydrox 30 Ml Oral.Susp) 30 ml PO Q6H PRN PRN Reason: Heartburn/Nausea Aspirin (Aspirin 81 Mg Tab.Chew) 81 mg PO DAILY [facility] Last Admin: 11/02/22 09:26 Dose: 81 mg Atorvastatin Calcium (Atorvastatin Calcium 40 Mg Tablet) 40 mg PO BEDTIME [facility] Last Admin: 11/01/22 20:54 Dose: Not Given Brimonidine Tartrate (Brimonidine Tartrate 0.2% Oph 5 Ml Bottle) 1 drop EYE-KAELYN TH TID [facility] Last Admin: 11/02/22 09:48 Dose: 1 drop Cephalexin HCl (Cephalexin 250 Mg Capsule) 250 mg PO Q8H [facility] Last Admin: 11/02/22 09:26 Dose: 250 mg Latanoprost (Latanoprost 0.005 % Ophth Ameena 2.5 Ml Drops) 1 drop EYE-BOTH BEDTIME [facility] Last Admin: 11/01/22 20:55 Dose: Not Given Magnesium Hydroxide (Milk Of Magnesia 30 Ml Oral.Susp) 30 ml PO DAILY PRN PRN Reason: Constipation Metoprolol Succinate (Metoprolol Succinate Er 25 Mg Tab.Er.24h) 25 mg PO BEDTIME [facility]; Protocol Last Admin: 11/01/22 20:55 Dose: Not Given Mirtazapine (Mirtazapine 15 Mg Tablet) 15 mg PO BEDTIME [facility] Last Admin: 11/01/22 20:55 Dose: Not Given Olanzapine (Olanzapine Odt 10 Mg Tab.Rapdis) 10 mg TRANSLINGU BID PRN PRN Reason: Psychosis Last Admin: 10/27/22 18:16 Dose: 10 mg Olanzapine (Olanzapine 7.5 Mg Tablet) 15 mg PO BEDTIME [facility] Last Admin: 11/01/22 20:55 Dose: Not Given Quetiapine Fumarate (Quetiapine Fumarate 25 Mg Tablet) 25 mg PO BID PRN PRN Reason: agitation Last Admin: 10/31/22 22:29 Dose: 25 mg Timolol Maleate (Timolol Maleate 0.5 % Oph Ameena 5 Ml Drbtl) 1 drop EYE-BOTH BID [facility] Last Admin: 11/02/22 09:48 Dose: 1 drop Trazodone HCl (Trazodone Hcl 25 Mg Halftab) 25 mg PO TID [facility] Last Admin: 11/02/22 09:26 Dose: 25 mg Venlafaxine HCl (Venlafaxine Hcl Er 150 Mg Cap.Er.24h) 150 mg PO DAILY [facility] Last Admin: 11/02/22 09:26 Dose: 150 mg Allergies Allergies Allergy/AdvReac Type Severity Reaction Status Date / Time No Known Allergies Allergy Verified 10/25/22 16:11 Assessment & Plan Assessment & Plan (1) Major depressive disorder: Status: Acute Code(s): F32.9 - Major depressive disorder, single episode, unspecified (2) Neurodegenerative cognitive impairment: Status: Acute Code(s): G31.9 - Degenerative disease of nervous system, unspecified (3) Delirium: Status: Acute Code(s): R41.0 - Disorientation, unspecified Plan 87 year old female with history vascular dementia, glaucoma, hld, htn admitted to psychiatry with consult placed to hospitalist service for medical H&P. #Vascular dementia -plan per psychiatry -UA and head ct unremarkable #MONTEZ -observed by 1:1 sitter. Does have bibasilar crackles. No significant BLE edema -Will check CXR #HLD -continue statin #HTN -continue metoprolol #Glaucoma -continue timolol will continue to follow for results. Plan 1. Gather collateral information. 2. We will continue with olanzapine as antipsychotics. 3. We will follow lab work. We will inform hospitalist regarding the UTI. Started on antibiotics on 10/25 4. Zyprexa Zydis p.r.n. started on October 26 5. Discontinue Zyprexa q.a.m. and change Zyprexa 15 mg p.o. q.h.s. all at night. 6. Start trazodone 25 mg p.o. t.i.d. to target anxiety Reason for continued inpatient stay Substantial Risk for: inability to function, rapid decompensation and med/psych decompensation Time Spent With Patient Time: Total time managing care of this patient today _20___ minutes.
[2022-11-02 18:00] VITALS: BP 101/50; PULSE 71; RESP 18; TEMP 36.1; O2SAT 98
[2022-11-02] MEDS: Atorvastatin Calcium 40 MG TABLET PO (20:44)
[2022-11-02] MEDS: Metoprolol Succinate ER 25 MG TAB.ER.24H PO (20:44)
[2022-11-02] MEDS: Mirtazapine 15 MG TABLET PO (20:44)
[2022-11-02] MEDS: Latanoprost 0.005 % Ophth Sol 2.5 ML DROPS 1 DROP EYE-BOTH (20:47)
[2022-11-02] MEDS: OLANZapine 7.5 MG TABLET 15 MG PO (20:48)
[2022-11-03] MEDS: cephALEXin 250 MG CAPSULE PO ×3 (01:14→16:41)
[2022-11-03 08:19] VITALS: BP 163/77; PULSE 61; RESP 18; TEMP 35.8; O2SAT 99
[2022-11-03] MEDS: timoloL maleate 0.5 % Oph Sol 5 ML DRBTL 1 DROP EYE-BOTH ×2 (09:29→21:06)
[2022-11-03] MEDS: Brimonidine Tartrate 0.2% Oph 5 ML BOTTLE 1 DROP EYE-BOTH ×3 (09:29→21:05)
[2022-11-03] MEDS: Venlafaxine HCl ER 150 MG CAP.ER.24H PO (09:30)
[2022-11-03] MEDS: traZODone HCL 25 MG HALFTAB PO ×3 (09:30→20:17)
[2022-11-03] MEDS: Aspirin 81 MG TAB.CHEW PO (09:30)
--- NOTE | 2022-11-03 10:57 | HO.PSYCHPN ---
Subjective Subjective Date of Service: 11/03/22 Reason For Visit: agitation depression Subjective Notes: Conditional Voluntary Interim History: The nursing staff reported the patient had been very confused she remains on one-to-one. The patient has very poor short-term memory and stent and she is nonsensical. She slept 5 hours. On interview the patient has no symptoms pleasant confused. Mental Status Exam Mental Status Exam Patient Appearance: Well Grooomed and Appropriate Patient Orientation: Person Level of Consciousness: Awake Patient Behavior: Guarded Mood Description: Withdrawn Affect Description: Constricted Patient Cognition Impaired: Yes Ability to Follow Directions: Good Speech Pattern: Clear Hallucinations: None Delusions: Paranoid Ideation Thought Process: Linear Thought Content: positive for [place] and positive for Poverty of Content Judgement: Fair Diagnostics Vital Signs (24Hr): Vital Signs - 24 hr 11/02/22 18:00 11/03/22 08:19 Temperature 96.9 F 96.4 F L Pulse Rate 71 61 Respiratory Rate 18 18 Blood Pressure 101/50 L 163/77 H Pulse Oximetry 98 99 Oxygen Delivery Method Room Air Room Air BMI result Body Mass Index 21.5 Labs 10/23/22 08:03 10/29/22 07:38 Imaging Radiology Impressions: ITS Impressions Chest X-Ray 10/23/22 12:23 IMPRESSION: Unremarkable chest exam Medications Medications Current Medications Acetaminophen (Acetaminophen 325 Mg Tablet) 650 mg PO Q6H PRN PRN Reason: Headache/Pain Mild Scale (1-3) Last Admin: 10/31/22 23:47 Dose: 650 mg Al Hydroxide/Mg Hydroxide (Magnesium Hydrox/Alum Hydrox 30 Ml Oral.Susp) 30 ml PO Q6H PRN PRN Reason: Heartburn/Nausea Aspirin (Aspirin 81 Mg Tab.Chew) 81 mg PO DAILY [facility] Last Admin: 11/03/22 09:30 Dose: 81 mg Atorvastatin Calcium (Atorvastatin Calcium 40 Mg Tablet) 40 mg PO BEDTIME [facility] Last Admin: 11/02/22 20:44 Dose: 40 mg Brimonidine Tartrate (Brimonidine Tartrate 0.2% Oph 5 Ml Bottle) 1 drop EYE-BOTH TID [facility] Last Admin: 11/03/22 09:29 Dose: 1 drop Cephalexin HCl (Cephalexin 250 Mg Capsule) 250 mg PO Q8H [facility] Last Admin: 11/03/22 09:30 Dose: 250 mg Latanoprost (Latanoprost 0.005 % Ophth Ameena 2.5 Ml Drops) 1 drop EYE-BOTH BEDTIME [facility] Last Admin: 11/02/22 20:47 Dose: 1 drop Magnesium Hydroxide (Milk Of Magnesia 30 Ml Oral.Susp) 30 ml PO DAILY PRN PRN Reason: Constipation Metoprolol Succinate (Metoprolol Succinate Er 25 Mg Tab.Er.24h) 25 mg PO BEDTIME [facility]; Protocol Last Admin: 11/02/22 20:44 Dose: 25 mg Mirtazapine (Mirtazapine 15 Mg Tablet) 15 mg PO BEDTIME [facility] Last Admin: 11/02/22 20:44 Dose: 15 mg Olanzapine (Olanzapine Odt 10 Mg Tab.Rapdis) 10 mg TRANSLINGU BID PRN PRN Reason: Psychosis Last Admin: 10/27/22 18:16 Dose: 10 mg Olanzapine (Olanzapine 7.5 Mg Tablet) 15 mg PO BEDTIME [facility] Last Admin: 11/02/22 20:48 Dose: 15 mg Quetiapine Fumarate (Quetiapine Fumarate 25 Mg Tablet) 25 mg PO BID PRN PRN Reason: agitation Last Admin: 10/31/22 22:29 Dose: 25 mg Timolol Maleate (Timolol Maleate 0.5 % Oph Ameena 5 Ml Drbtl) 1 drop EYE-BOTH BID [facility] Last Admin: 11/03/22 09:29 Dose: 1 drop Trazodone HCl (Trazodone Hcl 25 Mg Halftab) 25 mg PO TID [facility] Last Admin: 11/03/22 09:30 Dose: 25 mg Venlafaxine HCl (Venlafaxine Hcl Er 150 Mg Cap.Er.24h) 150 mg PO DAILY [facility] Last Admin: 11/03/22 09:30 Dose: 150 mg Allergies Allergies Allergy/AdvReac Type Severity Reaction Status Date / Time No Known Allergies Allergy Verified 10/25/22 16:11 Assessment & Plan Assessment & Plan (1) Major depressive disorder: Status: Acute Code(s): F32.9 - Major depressive disorder, single episode, unspecified (2) Neurodegenerative cognitive impairment: Status: Acute Code(s): G31.9 - Degenerative disease of nervous system, unspecified (3) Delirium: Status: Acute Code(s): R41.0 - Disorientation, unspecified Plan 87 year old female with history vascular dementia, glaucoma, hld, htn admitted to psychiatry with consult placed to hospitalist service for medical H&P. #Vascular dementia -plan per psychiatry -UA and head ct unremarkable #MONTEZ -observed by 1:1 sitter. Does have bibasilar crackles. No significant BLE edema -Will check CXR #HLD -continue statin #HTN -continue metoprolol #Glaucoma -continue timolol will continue to follow for results. Plan 1. Gather collateral information. 2. We will continue with olanzapine as antipsychotics. 3. We will follow lab work. We will inform hospitalist regarding the UTI. Started on antibiotics on 10/25 4. Zyprexa Zydis p.r.n. started on October 26 5. Discontinue Zyprexa q.a.m. and change Zyprexa 15 mg p.o. q.h.s. all at night. 6. Start trazodone 25 mg p.o. t.i.d. to target anxiety Reason for continued inpatient stay Substantial Risk for: inability to function, rapid decompensation and med/psych decompensation Time Spent With Patient Time: Total time managing care of this patient today __20__ minutes.
[2022-11-03] MEDS: Milk of Magnesia 30 ML ORAL.SUSP PO (17:56)
[2022-11-03 18:00] VITALS: BP 118/68; PULSE 63; RESP 18; TEMP 36; O2SAT 97
[2022-11-03] MEDS: Metoprolol Succinate ER 25 MG TAB.ER.24H PO (20:17)
[2022-11-03] MEDS: OLANZapine 7.5 MG TABLET 15 MG PO (20:17)
[2022-11-03] MEDS: Mirtazapine 15 MG TABLET PO (20:17)
[2022-11-03] MEDS: Atorvastatin Calcium 40 MG TABLET PO (20:21)
[2022-11-03] MEDS: Latanoprost 0.005 % Ophth Sol 2.5 ML DROPS 1 DROP EYE-BOTH (21:05)
[2022-11-04 06:00] VITALS: BP 109/59; PULSE 64; RESP 18; TEMP 35.9; O2SAT 93
--- NOTE | 2022-11-04 08:26 | P.PNPSI_ITS ---
Subjective Subjective Date of Service: 11/04/22 Reason For Visit: agitation depression Subjective Notes: Conditional Voluntary Interim History: The nursing staff reported the patient had been very confused, she verbalized at times that she wants to live she had been up most of the with night. On interview the patient remains confused but easily redirectable. Mental Status Exam Mental Status Exam Patient Appearance: Appropriate Patient Orientation: Person Level of Consciousness: Awake Patient Behavior: Guarded and Passive Mood Description: Withdrawn Affect Description: Constricted Patient Cognition Impaired: Yes Ability to Follow Directions: Good Speech Pattern: Clear Hallucinations: None Delusions: Paranoid Ideation Thought Process: Illogical and Distracted Thought Content: positive for [place], positive for [place] and positive for Poverty of Content Judgement: Fair Diagnostics Vital Signs (24Hr): Vital Signs - 24 hr 11/03/22 18:00 11/04/22 06:00 Temperature 96.8 F 96.6 F L Pulse Rate 63 64 Respiratory Rate 18 18 Blood Pressure 118/68 109/59 L Pulse Oximetry 97 93 Oxygen Delivery Method Room Air Room Air BMI result Body Mass Index 21.5 Labs 10/23/22 08:03 10/29/22 07:38 Imaging Radiology Impressions: ITS Impressions Chest X-Ray 10/23/22 12:23 IMPRESSION: Unremarkable chest exam Medications Medications Current Medications Acetaminophen (Acetaminophen 325 Mg Tablet) 650 mg PO Q6H PRN PRN Reason: Headache/Pain Mild Scale (1-3) Last Admin: 10/31/22 23:47 Dose: 650 mg Al Hydroxide/Mg Hydroxide (Magnesium Hydrox/Alum Hydrox 30 Ml Oral.Susp) 30 ml PO Q6H PRN PRN Reason: Heartburn/Nausea Aspirin (Aspirin 81 Mg Tab.Chew) 81 mg PO DAILY [facility] Last Admin: 11/03/22 09:30 Dose: 81 mg Atorvastatin Calcium (Atorvastatin Calcium 40 Mg Tablet) 40 mg PO BEDTIME [facility] Last Admin: 11/03/22 20:21 Dose: 40 mg Brimonidine Tartrate (Brimonidine Tartrate 0.2% Oph 5 Ml Bottle) 1 drop EYE- BOTH TID [facility] Last Admin: 11/03/22 21:05 Dose: 1 drop Cephalexin HCl (Cephalexin 250 Mg Capsule) 250 mg PO Q8H [facility] Last Admin: 11/04/22 04:45 Dose: Not Given Latanoprost (Latanoprost 0.005 % Ophth Ameena 2.5 Ml Drops) 1 drop EYE-BOTH BEDTIME [facility] Last Admin: 11/03/22 21:05 Dose: 1 drop Magnesium Hydroxide (Milk Of Magnesia 30 Ml Oral.Susp) 30 ml PO DAILY PRN PRN Reason: Constipation Last Admin: 11/03/22 17:56 Dose: 30 ml Metoprolol Succinate (Metoprolol Succinate Er 25 Mg Tab.Er.24h) 25 mg PO BEDTIME [facility]; Protocol Last Admin: 11/03/22 20:17 Dose: 25 mg Mirtazapine (Mirtazapine 15 Mg Tablet) 15 mg PO BEDTIME [facility] Last Admin: 11/03/22 20:17 Dose: 15 mg Olanzapine (Olanzapine Odt 10 Mg Tab.Rapdis) 10 mg TRANSLINGU BID PRN PRN Reason: Psychosis Last Admin: 10/27/22 18:16 Dose: 10 mg Olanzapine (Olanzapine 7.5 Mg Tablet) 15 mg PO BEDTIME [facility] Last Admin: 11/03/22 20:17 Dose: 15 mg Quetiapine Fumarate (Quetiapine Fumarate 25 Mg Tablet) 25 mg PO BID PRN PRN Reason: agitation Last Admin: 10/31/22 22:29 Dose: 25 mg Timolol Maleate (Timolol Maleate 0.5 % Oph Ameena 5 Ml Drbtl) 1 drop EYE-BOTH BID [facility] Last Admin: 11/03/22 21:06 Dose: 1 drop Trazodone HCl (Trazodone Hcl 25 Mg Halftab) 25 mg PO TID [facility] Last Admin: 11/03/22 20:17 Dose: 25 mg Venlafaxine HCl (Venlafaxine Hcl Er 150 Mg Cap.Er.24h) 150 mg PO DAILY [facility] Last Admin: 11/03/22 09:30 Dose: 150 mg Allergies Allergies Allergy/AdvReac Type Severity Reaction Status Date / Time No Known Allergies Allergy Verified 10/25/22 16:11 Assessment & Plan Assessment & Plan (1) Major depressive disorder: Status: Acute Code(s): F32.9 - Major depressive disorder, single episode, unspecified (2) Neurodegenerative cognitive impairment: Status: Acute Code(s): G31.9 - Degenerative disease of nervous system, unspecified (3) Delirium: Status: Acute Code(s): R41.0 - Disorientation, unspecified Plan 87 year old female with history vascular dementia, glaucoma, hld, htn admitted to psychiatry with consult placed to hospitalist service for medical H&P. #Vascular dementia -plan per psychiatry -UA and head ct unremarkable #MONTEZ -observed by 1:1 sitter. Does have bibasilar crackles. No significant BLE edema -Will check CXR #HLD -continue statin #HTN -continue metoprolol #Glaucoma -continue timolol will continue to follow for results. Plan 1. Gather collateral information. 2. We will continue with olanzapine as antipsychotics. 3. We will follow lab work. We will inform hospitalist regarding the UTI. Started on antibiotics on 10/25 4. Zyprexa Zydis p.r.n. started on October 26 5. Discontinue Zyprexa q.a.m. and change Zyprexa 15 mg p.o. q.h.s. all at night. 6. Start trazodone 25 mg p.o. t.i.d. to target anxiety Reason for continued inpatient stay Substantial Risk for: inability to function, rapid decompensation and med/psych decompensation Time Spent With Patient Time: Total time managing care of this patient today ____ minutes.
[2022-11-04] MEDS: Brimonidine Tartrate 0.2% Oph 5 ML BOTTLE 1 DROP EYE-BOTH ×3 (08:32→21:07)
[2022-11-04] MEDS: timoloL maleate 0.5 % Oph Sol 5 ML DRBTL 1 DROP EYE-BOTH ×2 (08:32→21:07)
[2022-11-04] MEDS: cephALEXin 250 MG CAPSULE PO ×2 (08:32→16:31)
[2022-11-04] MEDS: Aspirin 81 MG TAB.CHEW PO (08:32)
[2022-11-04] MEDS: Venlafaxine HCl ER 150 MG CAP.ER.24H PO (08:33)
[2022-11-04] MEDS: traZODone HCL 25 MG HALFTAB PO ×3 (08:33→21:09)
[2022-11-04] MEDS: Milk of Magnesia 30 ML ORAL.SUSP PO (08:47)
[2022-11-04] MEDS: OLANZapine ODT 10 MG TAB.RAPDIS TRANSLINGU (14:04)
--- NOTE | 2022-11-04 14:44 | PC.NURSE ---
Resident very confused but complaining of no bowel movement for a few days. MOM and warm prune juice given today per patient request, effect pending. Resident's abdomen is soft, non tender with positive bowel sounds all quadrants. Abdominal exam was unremarkable. Resident ambulating frequently on unit with walker. Meal and med compliance excellent. Will continue to monitor.
[2022-11-04 18:00] VITALS: BP 123/59; PULSE 62; RESP 18; TEMP 35.8; O2SAT 94
[2022-11-04] MEDS: Atorvastatin Calcium 40 MG TABLET PO (21:06)
[2022-11-04] MEDS: Latanoprost 0.005 % Ophth Sol 2.5 ML DROPS 1 DROP EYE-BOTH (21:07)
[2022-11-04] MEDS: Metoprolol Succinate ER 25 MG TAB.ER.24H PO (21:07)
[2022-11-04] MEDS: Mirtazapine 15 MG TABLET PO (21:09)
[2022-11-04] MEDS: OLANZapine 7.5 MG TABLET 15 MG PO (21:09)
[2022-11-05 09:50] VITALS: BP 157/69; PULSE 61; RESP 20; TEMP 35.8; O2SAT 93
[2022-11-05] MEDS: Brimonidine Tartrate 0.2% Oph 5 ML BOTTLE 1 DROP EYE-BOTH ×3 (09:51→21:32)
[2022-11-05] MEDS: timoloL maleate 0.5 % Oph Sol 5 ML DRBTL 1 DROP EYE-BOTH ×2 (10:01→21:33)
[2022-11-05] MEDS: traZODone HCL 25 MG HALFTAB PO ×3 (10:05→21:33)
[2022-11-05] MEDS: Aspirin 81 MG TAB.CHEW PO (10:05)
[2022-11-05] MEDS: Venlafaxine HCl ER 150 MG CAP.ER.24H PO (10:05)
--- NOTE | 2022-11-05 15:57 | HO.PSYCHPN ---
Subjective Subjective Date of Service: 11/05/22 Reason For Visit: agitation depression Subjective Notes: Conditional Voluntary Interim History: The nursing staff reported the patient has been intrusive but compliant with medication. She remains on one-to-one. The socially responsible investment adviser reported the patient was accepted to an assisted living facility memory unit for next Saturday. On interview the patient denies new symptoms pleasantly confused, easily redirectable. Mental Status Exam Mental Status Exam Patient Appearance: Well Grooomed and Appropriate Patient Orientation: Person and Situation Level of Consciousness: Awake and Appropriate Patient Behavior: Guarded and Passive Mood Description: Withdrawn Affect Description: Constricted Patient Cognition Impaired: Yes Ability to Follow Directions: Good Speech Pattern: Clear Hallucinations: None Delusions: Not Present Thought Process: Distracted Thought Content: positive for [place] Judgement: Fair Diagnostics Vital Signs (24Hr): Vital Signs - 24 hr 11/04/22 18:00 11/05/22 09:50 Temperature 96.5 F L 96.4 F L Pulse Rate 62 61 Respiratory Rate 18 20 Blood Pressure 123/59 L 157/69 H Pulse Oximetry 94 93 Oxygen Delivery Method Room Air Room Air BMI result Body Mass Index 21.5 Labs 10/23/22 08:03 10/29/22 07:38 Imaging Radiology Impressions: ITS Impressions Chest X-Ray 10/23/22 12:23 IMPRESSION: Unremarkable chest exam Medications Medications Current Medications Acetaminophen (Acetaminophen 325 Mg Tablet) 650 mg PO Q6H PRN PRN Reason: Headache/Pain Mild Scale (1-3) Last Admin: 10/31/22 23:47 Dose: 650 mg Al Hydroxide/Mg Hydroxide (Magnesium Hydrox/Alum Hydrox 30 Ml Oral.Susp) 30 ml PO Q6H PRN PRN Reason: Heartburn/Nausea Aspirin (Aspirin 81 Mg Tab.Chew) 81 mg PO DAILY [facility] Last Admin: 11/05/22 10:05 Dose: 81 mg Atorvastatin Calcium (Atorvastatin Calcium 40 Mg Tablet) 40 mg PO BEDTIME [facility] Last Admin: 11/04/22 21:06 Dose: 40 mg Brimonidine Tartrate (Brimonidine Tartrate 0.2% Oph 5 Ml Bottle) 1 drop EYE-BOTH TID [facility] Last Admin: 11/05/22 15:42 Dose: 1 drop Latanoprost (Latanoprost 0.005 % Ophth Ameena 2.5 Ml Drops) 1 drop EYE-BOTH BEDTIME [facility] Last Admin: 11/04/22 21:07 Dose: 1 drop Magnesium Hydroxide (Milk Of Magnesia 30 Ml Oral.Susp) 30 ml PO DAILY PRN PRN Reason: Constipation Last Admin: 11/04/22 08:47 Dose: 30 ml Metoprolol Succinate (Metoprolol Succinate Er 25 Mg Tab.Er.24h) 25 mg PO BEDTIME [facility]; Protocol Last Admin: 11/04/22 21:07 Dose: 25 mg Mirtazapine (Mirtazapine 15 Mg Tablet) 15 mg PO BEDTIME [facility] Last Admin: 11/04/22 21:09 Dose: 15 mg Olanzapine (Olanzapine Odt 10 Mg Tab.Rapdis) 10 mg TRANSLINGU BID PRN PRN Reason: Psychosis Last Admin: 11/04/22 14:04 Dose: 10 mg Olanzapine (Olanzapine 7.5 Mg Tablet) 15 mg PO BEDTIME [facility] Last Admin: 11/04/22 21:09 Dose: 15 mg Timolol Maleate (Timolol Maleate 0.5 % Oph Ameena 5 Ml Drbtl) 1 drop EYE-BOTH BID [facility] Last Admin: 11/05/22 10:01 Dose: 1 drop Trazodone HCl (Trazodone Hcl 25 Mg Halftab) 25 mg PO TID [facility] Last Admin: 11/05/22 15:43 Dose: 25 mg Venlafaxine HCl (Venlafaxine Hcl Er 150 Mg Cap.Er.24h) 150 mg PO DAILY [facility] Last Admin: 11/05/22 10:05 Dose: 150 mg Allergies Allergies Allergy/AdvReac Type Severity Reaction Status Date / Time No Known Allergies Allergy Verified 10/25/22 16:11 Assessment & Plan Assessment & Plan (1) Major depressive disorder: Status: Acute Code(s): F32.9 - Major depressive disorder, single episode, unspecified (2) Neurodegenerative cognitive impairment: Status: Acute Code(s): G31.9 - Degenerative disease of nervous system, unspecified (3) Delirium: Status: Acute Code(s): R41.0 - Disorientation, unspecified Plan 87 year old female with history vascular dementia, glaucoma, hld, htn admitted to psychiatry with consult placed to hospitalist service for medical H&P. #Vascular dementia -plan per psychiatry -UA and head ct unremarkable #MONTEZ -observed by 1:1 sitter. Does have bibasilar crackles. No significant BLE edema -Will check CXR #HLD -continue statin #HTN -continue metoprolol #Glaucoma -continue timolol will continue to follow for results. Plan 1. Gather collateral information. 2. We will continue with olanzapine as antipsychotics. 3. We will follow lab work. We will inform hospitalist regarding the UTI. Started on antibiotics on 10/25 4. Zyprexa Zydis p.r.n. started on October 26 5. Discontinue Zyprexa q.a.m. and change Zyprexa 15 mg p.o. q.h.s. all at night. 6. Start trazodone 25 mg p.o. t.i.d. to target anxiety Reason for continued inpatient stay Substantial Risk for: inability to function, rapid decompensation and med/psych decompensation Time Spent With Patient Time: Total time managing care of this patient today __20__ minutes.
[2022-11-05 18:00] VITALS: BP 102/50; PULSE 60; RESP 16; TEMP 36.2; O2SAT 92
[2022-11-05] MEDS: Metoprolol Succinate ER 25 MG TAB.ER.24H PO (21:32)
[2022-11-05] MEDS: Atorvastatin Calcium 40 MG TABLET PO (21:32)
[2022-11-05] MEDS: Latanoprost 0.005 % Ophth Sol 2.5 ML DROPS 1 DROP EYE-BOTH (21:32)
[2022-11-05] MEDS: OLANZapine 7.5 MG TABLET 15 MG PO (21:33)
[2022-11-05] MEDS: Mirtazapine 15 MG TABLET PO (21:33)
[2022-11-06] MEDS: Brimonidine Tartrate 0.2% Oph 5 ML BOTTLE 1 DROP EYE-BOTH ×3 (08:24→20:52)
[2022-11-06] MEDS: timoloL maleate 0.5 % Oph Sol 5 ML DRBTL 1 DROP EYE-BOTH ×2 (09:07→20:49)
[2022-11-06 09:10] VITALS: BP 89/53; PULSE 65; RESP 20; TEMP 36; O2SAT 93
[2022-11-06 10:18] LABS: MANUAL DIFF FLAG NO
[2022-11-06 10:21] LABS: Basophils Percent Auto 0.6 % (0-2); Eosinophils Absolute Auto 0.1 X10*3/uL (0.0-0.4); Eosinophils Percent Auto 1.5 % (0-4); Hematocrit 36.1 % (37.0-47.0); Hemoglobin 11.5 g/dl (12.0-16.0); Imm Gran Abs Auto 0.01 X10*3/uL (0.00-0.03); Imm Gran Pct Auto 0.2 % (0.0-0.4); Lymphocytes Percent Auto 30.5 % (20-40); Mean Corpuscular HGB Conc 31.9 g/dl (31.0-35.0); Mean Corpuscular Hemoglobin 32.2 pg (27.0-33.0); Mean Corpuscular Volume 101.1 fL (80.0-98.0); Mean Platelet Volume 10.2 fL (9.4-12.3); Monocytes Absolute Auto 0.5 X10*3/uL (0.1-1.2); Monocytes Percent Auto 7.2 % (2-11); Platelet Count 188 X10*3/uL (160-400); Red Blood Count 3.57 X10*6/uL (4.20-5.50); Red Cell Distribution Width 14.2 % (11.0-16.0); White Blood Count 6.6 X10*3/uL (4.8-10.8)
[2022-11-06 10:39] LABS: Alanine Aminotransferase 23 U/L (0-31); Albumin Level 3.4 g/dL (3.5-5.0); Alkaline Phosphatase 71 U/L (39-117); Anion Gap 13 (12-20); Aspartate Amino Transferase 21 U/L (5-31); Bilirubin Total 0.5 mg/dL (0.0-1.0); Blood Urea Nitrogen 24 mg/dL (9-16); Calcium 8.8 mg/dL (8.4-10.2); Carbon Dioxide 26 mmol/L (22-29); Chloride 109 mmol/L (96-108); Creatinine Clr Calc Pharmacy 31.2; Estimated Glomerular Filt Rate 50; Glucose Random 104 mg/dL (60-115); Potassium 4.9 mmol/L (3.3-5.1); Sodium 143 mmol/L (135-145); Total Protein 5.5 g/dL (6.5-8.0)
[2022-11-06 12:06] LABS: Vitamin B12 591 pg/mL (200-900)
[2022-11-06 13:45] VITALS: BP 127/56
[2022-11-06] MEDS: 0.9 % Sodium Chloride 1,000 ML 999 ML IV (15:10)
--- NOTE | 2022-11-06 17:04 | P.PNPSI_ITS ---
Subjective Subjective Date of Service: 11/06/22 Reason For Visit: agitation depression Subjective Notes: Conditional Voluntary Interim History: Pt with low BP 89/53, HR 65, temp 97. CMC, CBC ordered. CBC shows macrocytic anemia, B12 >500. CMP BUN 24, Cr 1.05. Pt given IV fluids NS 999ml/hr. Pt later presented as less confused, asking she was going to be discharged from hospital today or tomorrow. She in fact will be discharged tomorrow. Pt not oriented to month, situation. Per nursing, pt slept through the night. No combative behaviors. She does seem more sedated with trazodone TID- will d/c it. Review of Systems Review of Systems Yes Unobtainable due to mental status Mental Status Exam Mental Status Exam Patient Appearance: Well Grooomed and Appropriate Patient Orientation: Person and Situation Level of Consciousness: Awake and Appropriate Patient Behavior: Guarded and Passive Mood Description: Withdrawn Affect Description: Constricted Patient Cognition Impaired: Yes Ability to Follow Directions: Good Speech Pattern: Clear Memory Description: Remote Impaired, Immediate Impaired and Usp Impaired Diagnostics Vital Signs (24Hr): Vital Signs - 24 hr 11/05/22 18:00 11/06/22 09:10 11/06/22 13:45 Temperature 97.1 F 96.8 F Pulse Rate 60 65 Respiratory Rate 16 20 Blood Pressure 102/50 L 89/53 L 127/56 L Pulse Oximetry 92 93 Oxygen Delivery Method Room Air Room Air BMI result Body Mass Index 21.5 Labs 11/06/22 10:13 11/06/22 10:13 Labs: Laboratory Results - last 48 hr 11/06/22 11/06/22 10:13 10:13 WBC 6.6 RBC 3.57 L Hgb 11.5 L Hct 36.1 L MCV 101.1 H MCH 32.2 MCHC 31.9 RDW 14.2 Plt Count 188 MPV 10.2 Immature Gran % (Auto) 0.2 Neut % (Auto) 60.0 Lymph % (Auto) 30.5 [place] % (Auto) 7.2 Eos % (Auto) 1.5 Baso % (Auto) 0.6 Lymph # (Auto) 2.0 [place] # (Auto) 0.5 Eos # (Auto) 0.1 Baso # (Auto) 0.0 Abs Immat Gran (auto) 0.01 Absolute Neuts (auto) 4.0 Absolute Nucleated RBC 0.000 Nucleated RBC % (auto) 0.0 Sodium 143 Potassium 4.9 Chloride 109 H Carbon Dioxide 26 Anion Gap 13 BUN 24 H Creatinine 1.05 Estim Creat Clear Calc 31.2 Estimated GFR 50 Random Glucose 104 Calcium 8.8 D Total Bilirubin 0.5 AST 21 ALT 23 Alkaline Phosphatase 71 Total Protein 5.5 L Albumin 3.4 L Vitamin B12 591 Folate 18.0 Imaging Radiology Impressions: ITS Impressions Chest X-Ray 10/23/22 12:23 IMPRESSION: Unremarkable chest exam Medications Medications Current Medications Acetaminophen (Acetaminophen 325 Mg Tablet) 650 mg PO Q6H PRN PRN Reason: Headache/Pain Mild Scale (1-3) Last Admin: 10/31/22 23:47 Dose: 650 mg Al Hydroxide/Mg Hydroxide (Magnesium Hydrox/Alum Hydrox 30 Ml Oral.Susp) 30 ml PO Q6H PRN PRN Reason: Heartburn/Nausea Aspirin (Aspirin 81 Mg Tab.Chew) 81 mg PO DAILY MAYRA Last Admin: 11/06/22 09:04 Dose: Not Given Atorvastatin Calcium (Atorvastatin Calcium 40 Mg Tablet) 40 mg PO BEDTIME MAYRA Last Admin: 11/05/22 21:32 Dose: 40 mg Brimonidine Tartrate (Brimonidine Tartrate 0.2% Oph 5 Ml Bottle) 1 drop EYE- BOTH TID MAYRA Last Admin: 11/06/22 14:19 Dose: 1 drop Latanoprost (Latanoprost 0.005 % Ophth Ameena 2.5 Ml Drops) 1 drop EYE-BOTH BEDTIME MAYRA Last Admin: 11/05/22 21:32 Dose: 1 drop Magnesium Hydroxide (Milk Of Magnesia 30 Ml Oral.Susp) 30 ml PO DAILY PRN PRN Reason: Constipation Last Admin: 11/04/22 08:47 Dose: 30 ml Metoprolol Succinate (Metoprolol Succinate Er 25 Mg Tab.Er.24h) 25 mg PO BEDTIME MAYRA; Protocol Last Admin: 11/05/22 21:32 Dose: 25 mg Mirtazapine (Mirtazapine 15 Mg Tablet) 15 mg PO BEDTIME MAYRA Last Admin: 11/05/22 21:33 Dose: 15 mg Olanzapine (Olanzapine Odt 10 Mg Tab.Rapdis) 10 mg TRANSLINGU BID PRN PRN Reason: Psychosis Last Admin: 11/04/22 14:04 Dose: 10 mg Olanzapine (Olanzapine 7.5 Mg Tablet) 15 mg PO BEDTIME [facility] Last Admin: 11/05/22 21:33 Dose: 15 mg Timolol Maleate (Timolol Maleate 0.5 % Oph Ameena 5 Ml Drbtl) 1 drop EYE-BOTH BID [facility] Last Admin: 11/06/22 09:07 Dose: 1 drop Trazodone HCl (Trazodone Hcl 25 Mg Halftab) 25 mg PO TID [facility] Last Admin: 11/06/22 14:20 Dose: Not Given Venlafaxine HCl (Venlafaxine Hcl Er 150 Mg Cap.Er.24h) 150 mg PO DAILY [facility] Last Admin: 11/06/22 09:04 Dose: Not Given Allergies Allergies Allergy/AdvReac Type Severity Reaction Status Date / Time No Known Allergies Allergy Verified 10/25/22 16:11 Assessment & Plan Assessment & Plan (1) Neurodegenerative cognitive impairment: Status: Acute Code(s): G31.9 - Degenerative disease of nervous system, unspecified (2) Major depressive disorder: Status: Acute Code(s): F32.9 - Major depressive disorder, single episode, unspecified (3) Delirium: Status: Acute Code(s): R41.0 - Disorientation, unspecified Plan 87 year old female with history vascular dementia, glaucoma, hld, htn admitted to psychiatry with consult placed to hospitalist service for medical H&P. #Vascular dementia -plan per psychiatry -UA and head ct unremarkable #MONTEZ -observed by 1:1 sitter. Does have bibasilar crackles. No significant BLE edema -Will check CXR #HLD -continue statin #HTN -continue metoprolol #Glaucoma -continue timolol will continue to follow for results. Plan / d/c trazodone tid due to sedation. IV fluids NS 999ml/hr BP 84/53, Hr 65. afebrile. cbc shows macrocytic anemia, BUN elevated but better than last labs 24, Cr 1.05. Reason for continued inpatient stay Substantial Risk for: inability to function Time Spent With Patient Time: Total time managing care of this patient today ____ minutes.
[2022-11-06] MEDS: Atorvastatin Calcium 40 MG TABLET PO (20:47)
[2022-11-06] MEDS: OLANZapine 7.5 MG TABLET 15 MG PO (20:47)
[2022-11-06] MEDS: Metoprolol Succinate ER 25 MG TAB.ER.24H PO (20:47)
[2022-11-06] MEDS: Latanoprost 0.005 % Ophth Sol 2.5 ML DROPS 1 DROP EYE-BOTH (20:48)
[2022-11-06] MEDS: Mirtazapine 15 MG TABLET PO (20:52)
[2022-11-06 20:59] VITALS: BP 132/60; PULSE 73; RESP 16; TEMP 36.1; O2SAT 95
[2022-11-07] MEDS: OLANZapine ODT 10 MG TAB.RAPDIS TRANSLINGU (00:46)
--- NOTE | 2022-11-07 02:07 | PC.NURSE ---
pt 2 assists to bathroom. in the process, pt decided to abandon her walker. she grew agitated and started screaming at the top her lungs to leave her room. pts behavior continued to escalate and she began to strike at staff with fists clenched. she continues to scream very loudly to be left alone. she is refusing all prns at this time. with the use of a wheelchair the pt is brought to the common area with the hopes of decreasing her agitation. while in the common area she rants profanities at staff and brings out name calling. pt is given zydis 10 mg odt. security officers were summoned and assisted in returning pt to bed.
--- NOTE | 2022-11-07 07:59 | P.DS_ITS ---
DS: Providers Provider Date of Service: 11/07/22 Date of admission: 10/22/22 16:08 Date of discharge: 11/07/22 Primary care physician: Unknown Physician Consults: 10/22/22 19:25 Consult to Hospitalist Routine Comment: Consulting Provider: Hospitalist Reason For Exam: new admission from [facility] ED Attending physician on discharge: Gato BauerRose DS: Diagnosis Discharge Diagnosis (1) Neurodegenerative cognitive impairment: Status: Acute (2) Major depressive disorder: Status: Acute (3) Delirium: Status: Acute DS: Medications Discharge Medications Home Medications: Home Medications Medication Instructions Recorded Confirmed aspirin 81 mg chewable tablet 81 mg PO DAILY 10/22/22 10/22/22 atorvastatin 40 mg tablet 40 mg PO BEDTIME 10/22/22 10/22/22 brimonidine 0.2 % ophthalmic (eye) 3XD 10/22/22 10/22/22 fluoxetine 20 mg capsule 20 mg PO DAILY 10/22/22 10/22/22 latanoprost 0.005 % eye drops 1 drp ophthalmic (eye) BEDTIME 10/22/22 10/22/22 metoprolol succinate 25 mg 25 mg PO BEDTIME 10/22/22 10/22/22 tablet,extended release 24 hr mirtazapine 15 mg tablet 15 mg PO BEDTIME 10/22/22 10/22/22 olanzapine 10 mg tablet 10 mg PO BEDTIME 10/22/22 10/22/22 olanzapine 5 mg tablet 5 mg PO DAILY 10/22/22 10/22/22 timolol 0.5 % eye drops 1 drp ophthalmic (eye) BID 10/22/22 10/22/22 venlafaxine 150 mg 150 mg PO DAILY 10/22/22 10/22/22 capsule,extended release 24 hr Mental Status Exam Mental Status Exam Patient Appearance: Well Grooomed and Appropriate Patient Orientation: Person Level of Consciousness: Awake, Appropriate and Disoriented Patient Behavior: Guarded and Passive Mood Description: Withdrawn Affect Description: Constricted Patient Cognition Impaired: Yes Ability to Follow Directions: Good Speech Pattern: Clear Hallucinations: None Delusions: Not Present Thought Process: Distracted Thought Content: positive for [place] and positive for Poverty of Content Judgement: Poor Data Data Completed and Pending Completed studies during hospitalization [Text1]: 11/06/22 11/06/22 10:13 10:13 WBC 6.6 RBC 3.57 L Hgb 11.5 L Hct 36.1 L MCV 101.1 H MCH 32.2 MCHC 31.9 RDW 14.2 Plt Count 188 MPV 10.2 Immature Gran % (Auto) 0.2 Neut % (Auto) 60.0 Lymph % (Auto) 30.5 [place] % (Auto) 7.2 Eos % (Auto) 1.5 Baso % (Auto) 0.6 Lymph # (Auto) 2.0 [place] # (Auto) 0.5 Eos # (Auto) 0.1 Baso # (Auto) 0.0 Abs Immat Gran (auto) 0.01 Absolute Neuts (auto) 4.0 Absolute Nucleated RBC 0.000 Nucleated RBC % (auto) 0.0 Sodium 143 Potassium 4.9 Chloride 109 H Carbon Dioxide 26 Anion Gap 13 BUN 24 H Creatinine 1.05 Estim Creat Clear Calc 31.2 Estimated GFR 50 Random Glucose 104 Calcium 8.8 D Total Bilirubin 0.5 AST 21 ALT 23 Alkaline Phosphatase 71 Total Protein 5.5 L Albumin 3.4 L Vitamin B12 591 Folate 18.0 10/24/22 Unknown Urine clean catch - Urine talbot top Urine Culture - Final Imaging Diagnostic Imaging Impressions Chest X-Ray 10/23/22 12:23 IMPRESSION: Unremarkable chest exam DS: Summary Hospital Course Hospital Course: The patient was initially admitted to the emergency room from another hospital for exacerbation of psychosis with agitation. Please see the HPI of the admission note for further details. The patient, at baseline, suffers from dementia and she is usually confused but easily redirectable. On admission the crisis assessment reported that she was assaultive towards caregivers and peers. On admission, we review her list of medications and she was initially treated with her regular antidepressants and a full medical workout was started. She wa s diagnosed of UTI and treated with antibiotics. Also, since she had some psychotic symptoms we continue treating her with Zyprexa. Initially it was dose to 5 mg in the morning and 10 at bed night but she was over-sedated. We decided to change Zyprexa to 15 mg p.o. q.h.s. to avoid over-sedation during the day with for improvement or resolution of psychosis. We had several family meetings when the patient needs [facility] facility memory unit. Several referrals were done and finally she found a bed in the local [facility] facility. Since there were no safety concerns discharge planning was discussed. Time spent discussing smoking cessation with patient: 3 to 10 minutes Status at Discharge Cognitive/behavioral status at discharge: Impaired at baseline Functional status at discharge: uses cane/walker Overall status at discharge: patient is not back to baseline Time Spent with Patient Time attestation: Total time managing care of this patient today __30__ minutes. Time spent: Less than 30 minutes Discharge Plan Discharge Anticipated Discharge Date/Time: 11/07/22 10:00 Patient Disposition: Xfer SNF Discharge Diagnosis: Delirium resolved. Neuro cognitive impairment Referrals: Physician,Emmie J [Primary Care Provider] - 1 Week Discharge Medications: New olanzapine 7.5 mg Tablet 15 mg PO BEDTIME 30 Days Qty: 60 0RF Rx Instructions: Dispense on bubble packs Continued latanoprost 0.005 % Drops 1 drp OPHTHALMIC (EYE) BEDTIME 30 Days Qty: 1 0RF atorvastatin 40 mg Tablet 40 mg PO BEDTIME 30 Days Qty: 30 0RF Rx Instructions: Dispense on bubble packs venlafaxine 150 mg Capsule,Extended Release 24hr 150 mg PO DAILY 30 Days Qty: 30 0RF Rx Instructions: Dispense on bubble packs timolol 0.5 % Drops 1 drp OPHTHALMIC (EYE) BID 30 Days Qty: 1 0RF aspirin 81 mg Tablet,Chewable 81 mg PO DAILY 30 Days Qty: 30 0RF Rx Instructions: Dispense on bubble packs mirtazapine 15 mg Tablet 15 mg PO BEDTIME 30 Days Qty: 30 0RF Rx Instructions: Dispense on bubble packs metoprolol succinate 25 mg Tablet Extended Release 24 Hr 25 mg PO BEDTIME 30 Days Qty: 30 0RF Rx Instructions: Dispense on bubble packs brimonidine drops 0.2 % ophthalmic (eye) 3XD 30 Days Qty: 1 0RF Rx Instructions: 1 drop each eye three times a day Discontinued olanzapine 5 mg Tablet 5 mg PO DAILY olanzapine 10 mg Tablet 10 mg PO BEDTIME fluoxetine 20 mg Capsule 20 mg PO DAILY Discharge Orders: Discharge Order (Routine); Ordered 11/07/22 Ordered By: Gato Rose Diet: Advance to usual diet Activity on Discharge: As tolerated Stand Alone Forms: Patient Portal Discharge page Care Plan Goals: Care plan goals achieved in this admission Health Concerns: Continue treatment with outpatient provider Plan of Treatment: Continue medication management Assessment: Elderly female with a long history of dementia admitted for exacerbation of agitation in the context of a UTI treated the delirium with resolved symptoms. At baseline, the patient is impaired but at this moment she is safe to be in the community.
== END 2022-11-07 11:05 | disposition skilled nursing facility (03) | DRG 881 ==
PROVIDERS: Psychiatry & Neurology Psychiatry; Social Worker; Admitting Provider Psychiatry & Neurology Psychiatry; Visit Provider Psychiatry & Neurology Psychiatry
DX: F32.9 Major depressive disorder, single episode, unspecified (principal); F05 Delirium due to known physiological condition; N39.0 Urinary tract infection, site not specified; H40.9 Unspecified glaucoma; E78.5 Hyperlipidemia, unspecified; F01.50 Vascular dementia, unspecified severity, without behavioral disturbance, psychotic disturbance, mood disturbance, and anxiety; Z79.82 Long term (current) use of aspirin; Z79.899 Other long term (current) drug therapy
CPT/HCPCS: 36415; 71045; 80048; 80053; 80061; 80164; 81001; 82607; 82746; 84439; 84443; 85025; 87086